=== PATIENT | male | born 1975 | race Hispanic/Latino ===

== ENCOUNTER 2018-05-03 22:50 | Inpatient (IN) | payer OTHER ==
--- NOTE | 2018-05-03 23:33 | ED PDOC ---
Arrival/HPI - General Chief Complaint: Altered Mental Status Time Seen by Provider: 05/03/18 22:58 Historian: Patient - History of Present Illness Narrative History of Present Illness (Text): 05/03/18 23:33 Tray Geronimo is a 43 year old male, who denies any significant past medical history, who presents to the ED brought in by EMS accompanied by status post possible seizure tonight. As per , patient was in their bedroom watching TV while she was in their dining room when she heard him scream. When she entered the room, she noted patient was clenched tightly at the arms, foaming at the mouth, and his eyes rolled back. Patient does not recall the incident. notes patient recently started taking antibiotics today prescribed to him by his transportation inspector a weak ago but is unsure why he was placed on antibiotics. Patient denies any history of tongue biting, acute bladder/bowel incontinence, headache, vision changes, weakness, vomiting, or any other complaints. PMD: Dr. Schaeffer Symptom Onset: Gradual Symptom Course: Unchanged Activities at Onset: Light Context: Home Past Medical History - Provider Review Nursing Documentation Reviewed: Yes - Neurological Hx Dizziness: Yes - Psychiatric Hx Substance Use: No Family/Social History - Physician Review Nursing Documentation Reviewed: Yes Family/Social History: Unknown Family HX Smoking Status: Light Smoker < 10 Cigarettes Daily Hx Alcohol Use: Yes Frequency of alcohol use: Socially Hx Substance Use: No Allergies/Home Meds Allergies/Adverse Reactions: Allergies No Known Allergies Allergy (Verified 05/03/18 22:59) Home Medications: Home Meds Medication Instructions Recorded Confirmed RX: No Known Home Med 05/03/18 05/03/18 Review of Systems - Physician Review All systems were reviewed & negative as marked: Yes - Review of Systems Constitutional: Normal Eyes: Normal ENT: Normal Respiratory: Normal. absent: SOB, Cough Cardiovascular: Normal. absent: Chest Pain Gastrointestinal: Normal. absent: Abdominal Pain, Diarrhea, Nausea, Vomiting Genitourinary Male: Normal. absent: Dysuria, Frequency, Hematuria, Urinary Output Changes Musculoskeletal: Normal. absent: Back Pain, Neck Pain Skin: Normal. absent: Rash Neurological: Normal. absent: Headache, Dizziness Endocrine: Normal Hemo/Lymphatic: Normal Psychiatric: Normal Physical Exam Vital Signs Reviewed: Yes Vital Signs Temp Pulse Resp BP Pulse Ox 05/04/18 12:00 98.4 F 88 16 121/83 97 05/04/18 10:00 74 05/04/18 09:36 16 05/04/18 08:00 99.5 F 90 16 150/100 H 97 05/04/18 06:00 90 135/80 05/04/18 05:00 85 18 140/100 H 05/04/18 04:00 98.5 F 86 24 130/95 H 05/04/18 02:25 81 18 155/74 H 98 05/04/18 02:00 88 138/80 05/04/18 01:00 85 140/74 05/03/18 23:21 98.1 F 90 18 164/113 H 100 Temperature: Afebrile Blood Pressure: Hypertensive Pulse: Regular Respiratory Rate: Normal Appearance: Positive for: Well-Appearing, Non-Toxic, Comfortable Pain Distress: None Mental Status: Positive for: Alert and Oriented X 3 - Systems Exam Head: Present: Atraumatic, Normocephalic Pupils: Present: PERRL Extroacular Muscles: Present: EOMI Conjunctiva: Present: Normal Mouth: Present: Moist Mucous Membranes Neck: Present: Normal Range of Motion Respiratory/Chest: Present: Clear to Auscultation, Good Air Exchange. No: Respiratory Distress, Accessory Muscle Use Cardiovascular: Present: Regular Rate and Rhythm, Normal S1, S2. No: Murmurs Abdomen: No: Tenderness, Distention, Peritoneal Signs Back: Present: Normal Inspection Upper Extremity: Present: Normal Inspection. No: Cyanosis, Edema Lower Extremity: Present: Normal Inspection. No: Edema Neurological: Present: GCS=15, CN II-XII Intact, Speech Normal Skin: Present: Warm, Dry, Normal Color. No: Rashes Psychiatric: Present: Alert, Oriented x 3, Normal Insight, Normal Concentration Medical Decision Making ED Course and Treatment: 05/03/18 23:33 Impression: 43 year old male presents status post possible seizure tonight. Plan: -- CT Head w/o contrast -- EKG -- CXR -- Labs, cardiac enzymes, alcohol level -- Urine drug screen -- Reassess and disposition Progress Notes: Reviewed EKG, NSR at [address] bpm[address] Non-specific ST/T wave changes. 05/04/18 01:22 Radiology reviewed, CXR reviewed, shows no acute processes. CT Head shows: 1. There is generalized parenchymal atrophy noted as demonstrated by symmetrical dilatation of ventricles and sulci. 2. Chronic periventricular and subcortical microvascular disease is seen. 3. No acute intracranial pathology. Electronically signed on May 04, 2018, 00:15:13 EDT by: Kiko Serrato M.D. 05/04/18 01:[address] Schaeffer, who is aware and agrees with plan. Accepts pt in to his service. Pt will go to Telemetry observation for new onset seizure and hypokalemia. Requests Dr. Navarrete on consult. - Lab Interpretations Lab Results: 05/03/18 23:32 05/03/18 23:32 Lab Results 05/03/18 23:32: WBC 9.5, RBC 3.42 L, Hgb 11.6 L, Hct 33.9 L, MCV 99.1, MCH 33.9, MCHC 34.2, RDW 14.5, Plt Count 209, MPV 10.2 05/03/18 23:32: Alcohol, Quantitative < 10 05/03/18 23:32: Sodium 131 L, Potassium 2.8 L*, Chloride 85 L, Carbon Dioxide 2 5, Anion Gap 24 H, BUN 11, Creatinine 0.7 L, Est GFR ( Amer) > 60, Est GFR (Non-Af Amer) > 60, Random Glucose 92, Calcium 8.4, Total Bilirubin 1.6 H, AST 141 H, ALT 64 H, Alkaline Phosphatase 140 H, Lactate Dehydrogenase 608, Total Creatine Kinase 92, Troponin I < 0.01, Total Protein 7.5, Albumin 4.2, Globulin 3.3, Albumin/Globulin Ratio 1.3 05/03/18 23:32: PT 12.8 H, INR 1.12, APTT 28.7 I have reviewed the lab results: Yes - RAD Interpretation Radiology Orders: 05/03/18 23:34 HEAD W/O CONTRAST [CT] Stat 05/03/18 23:35 CHEST ONE VIEW [RAD] Stat Furniture Sales Associate: ED Physician, Radiologist - EKG Interpretation Interpreted by ED Physician: Yes Type: 12 lead EKG - Medication Orders Current Medication Orders: Famotidine (Pepcid) 40 mg PO HS SANDEEP Potassium Chloride 20 meq/ (Sodium Chloride) 1,010 mls @ 100 mls/hr IV .Q10H6M SANDEEP Last Admin: 05/04/18 08:20 Dose: 100 mls/hr eMAR Start Stop Document 05/04/18 08:20 ALIPM (Rec: 05/04/18 13:44 ALIPM [id number]) Intravenous Solution Start Date 05/04/18 Start Time 08:20 End Date 05/04/18 End time 18:20 Total Infusion Time 600 Discontinued Medications Potassium Chloride (Potassium Chloride 20 Meq/100 Ml) 100 mls @ 50 mls/hr IV ONCE ONE Stop: 05/04/18 02:39 Last Admin: 05/04/18 01:14 Dose: 50 mls/hr eMAR Start Stop Document 05/04/18 01:14 RD (Rec: 05/04/18 01:14 RD [id number]) Intravenous Solution Start Date 05/04/18 Start Time 01:14 End Date 05/04/18 End time 03:14 Total Infusion Time 120 Sodium Chloride (Sodium Chloride 0.9%) 1,000 mls @ 100 mls/hr IV .Q10H SANDEEP Last Admin: 05/04/18 06:15 Dose: 100 mls/hr eMAR Start Stop Document 05/04/18 06:15 B.P (Rec: 05/04/18 06:16 B.P [id number]) Intravenous Solution Start Date DANIELE.STARTSTOP 4 17 Message Total Infusion Time Main 3 Magnesium Sulfate (Magnesium Sulfate 2 Gm/50 Ml Water) 2 gm in 50 mls @ 25 mls/hr IVPB ONCE ONE Stop: 05/04/18 10:18 Last Admin: 05/04/18 08:43 Dose: 25 mls/hr eMAR Start Stop Document 05/04/18 08:43 ALIPM (Rec: 05/04/18 08:44 ALIPM [id number]) Intravenous Solution Start Date 05/04/18 Start Time 08:43 End Date 05/04/18 End time 10:43 Total Infusion Time 120 Potassium Chloride (K-Dur 20 Meq Er Tab) 20 meq PO STAT STA Stop: 05/04/18 00:41 Last Admin: 05/04/18 01:07 Dose: 20 meq Potassium Chloride (K-Dur 20 Meq Er Tab) 40 meq PO ONCE ONE Stop: 05/04/18 05:55 Last Admin: 05/04/18 06:15 Dose: 40 meq - Scribe Statement The provider has reviewed the documentation as recorded by the Scribe Bhargavi Kiley All medical record entries made by the Flacoibmeagan were at my direction and p ersonally dictated by me. I have reviewed the chart and agree that the record accurately reflects my personal performance of the history, physical exam, medical decision making, and the department course for this patient. I have also personally directed, reviewed, and agree with the discharge instructions and disposition. Disposition/Present on Arrival - Present on Arrival Any Indicators Present on Arrival: No History of DVT/PE: No History of Uncontrolled Diabetes: No Urinary Catheter: No History of Decub. Ulcer: No History Surgical Site Infection Following: None - Disposition Have Diagnosis and Disposition been Completed?: Yes Diagnosis: Hypokalemia, New onset seizure Disposition Time: 02:00 Condition: GOOD
[2018-05-04 00:09] LABS: HEMOGLOBIN 11.6 g/dL (14.0-18.0); MEAN CELL VOLUME 99.1 fl (80.0-105.0); MEAN CORPUSCULAR HEMOGLOBIN 33.9 pg (25.0-35.0); MEAN CORPUSCULAR HGB CONC 34.2 g/dl (31.0-37.0); MEAN PLATELET VOLUME 10.2 fl (7.0-11.0); RBC 3.42 10^6/uL (3.5-6.1); RED CELL DISTRIBUTION WIDTH 14.5 % (11.5-14.5); WHITE BLOOD COUNT 9.5 10^3/ul (4.5-11.0)
[2018-05-04 00:13] LABS: INR 1.12; PARTIAL THROMBOPLASTIN TIME 28.7 Seconds (25.1-36.5); PROTHROMBIN TIME 12.8 SECONDS (9.4-12.5)
[2018-05-04 00:28] LABS: TROPONIN I < 0.01 ng/mL
[2018-05-04 00:37] LABS: ALB/GLOB RATIO 1.3 (1.1-1.8); ALBUMIN 4.2 g/dL (3.0-4.8); ALT/SGPT 64 U/L (7-56); AST/SGOT 141 U/L (17-59); BLOOD UREA NITROGEN 11 mg/dL (7-21); CALCIUM 8.4 mg/dL (8.4-10.5); GFR NON-AFRICAN AMERICAN > 60
[2018-05-04] MEDS ORDERED: Potassium Chloride 20 mEq ER Tab PO STA (00:40)
[2018-05-04] MEDS ORDERED: Potassium Chloride 20 mEq 100 ML IV ONE (00:40)
[2018-05-04] MEDS ORDERED: Sodium Chloride 0.9% 1,000 ML IV SCH (03:00)
[2018-05-04] MEDS ORDERED: Potassium Chloride 20 mEq ER Tab PO ONE ×2 (05:54→18:37)
--- NOTE | 2018-05-04 06:32 | CP.PCM.HP ---
<Fabi Villanueva - Last Filed: 05/04/18 11:03> History of Present Illness - History of Present Illness History of Present Illness: H&P for Dario Fletcher PGY3 This is a 43yo male with no significant history who came to ED for seizure like activity. Patient reports he was watching tv in bed when all of a sudden his heard him scream and found him with his eyes rolled back and foaming at the mouth. He does not remember passing out or hitting his head. He did not feel dizzy, vision changes, chest pain or have any other issues at the time and was just relaxing in bed. His states he was not shaking but his arms were locked at his chest and he was unresponsive for a few minutes until EMS arrived. When EMS arrived patient was confused for several minutes before he realized what had happened. Patient did have one episode of diarrhea in the bed as per , but was not having any diarrhea prior to the episode and has pain on his tongue, but does not remember biting it. This has never happened before. Patient does have history of psoriasis and started taking oral antibiotics starting that day but does not remember that name. Otherwise, he denies chest pain, shortness of breath, dizziness, vision changes, nausea/vomiting/diarrhea, fever/chills, dysuria or hematuria. Past medical history: Psoriasis Past surgical history: Denies Home meds: None Allergies: NKDA Social history: smokes 1/2-3/4 ppd x 25yrs, drinks 1-2 beers daily, denies drug use. Lives with spouse Family history: Both parents alive and healthy Present on Admission - Present on Admission Any Indicators Present on Admission: No Review of Systems - Review of Systems All systems: reviewed and no additional remarkable complaints except Review of Systems: 12 point ROS reviewed as per HPI and is otherwise negative Past Patient History - Past Social History Smoking Status: Light Smoker < 10 Cigarettes Daily - NEUROLOGICAL Hx Dizziness: Yes - PSYCHIATRIC Hx Substance Use: No Meds Allergies/Adverse Reactions: Allergies Allergy/AdvReac Type Severity Reaction Status Date / Time No Known Allergies Allergy Verified 05/03/18 22:59 Physical Exam - Constitutional Appears: No Acute Distress - Head Exam Head Exam: ATRAUMATIC, NORMAL INSPECTION, NORMOCEPHALIC - Eye Exam Eye Exam: Normal appearance, PERRL Pupil Exam: NORMAL ACCOMODATION - ENT Exam ENT Exam: Mucous Membranes Moist - Neck Exam Neck exam: Positive for: Normal Inspection - Respiratory Exam Respiratory Exam: Clear to Auscultation Bilateral, NORMAL BREATHING PATTERN. absent: Rales, Rhonchi, Wheezes - Cardiovascular Exam Cardiovascular Exam: REGULAR RHYTHM, +S1, +S2. absent: Gallop, Rubs, Systolic Murmur - GI/Abdominal Exam GI & Abdominal Exam: Normal Bowel Sounds, Soft. absent: Mass, Rebound, Rigid, Tenderness - Extremities Exam Extremities exam: Positive for: normal inspection. Negative for: calf tenderness, pedal edema - Neurological Exam Neurological exam: Alert, CN II-XII Intact, Oriented x3 - Psychiatric Exam Psychiatric exam: Normal Affect, Normal Mood - Skin Skin Exam: Dry, Intact, Rash (on bilateral dorsal surface of hands ), Warm Results - Vital Signs Recent Vital Signs: Last Vital Signs Temp 98.1 F 05/03/18 23:21 Pulse 81 05/04/18 02:25 Resp 18 05/04/18 02:25 BP 155/74 H 05/04/18 02:25 Pulse Ox 98 05/04/18 02:25 - Labs Result Diagrams: 05/03/18 23:32 05/04/18 07:30 Labs: Laboratory Results - last 24 hr 05/03/18 05/03/18 05/03/18 23:32 23:32 23:32 WBC RBC Hgb Hct MCV MCH MCHC RDW Plt Count MPV PT 12.8 H INR 1.12 APTT 28.7 Sodium 131 L Potassium 2.8 L* Chloride 85 L Carbon Dioxide 25 Anion Gap 24 H BUN 11 Creatinine 0.7 L Est GFR ( Amer) > 60 Est GFR (Non-Af Amer) > 60 Random Glucose 92 Calcium 8.4 Total Bilirubin 1.6 H AST 141 H ALT 64 H Alkaline Phosphatase 140 H Lactate Dehydrogenase 608 Total Creatine Kinase 92 Troponin I < 0.01 Total Protein 7.5 Albumin 4.2 Globulin 3.3 Albumin/Globulin Ratio 1.3 Alcohol, Quantitative < 10 05/03/18 23:32 WBC 9.5 RBC 3.42 L Hgb 11.6 L Hct 33.9 L MCV 99.1 MCH 33.9 MCHC 34.2 RDW 14.5 Plt Count 209 MPV 10.2 PT INR APTT Sodium Potassium Chloride Carbon Dioxide Anion Gap BUN Creatinine Est GFR ( Amer) Est GFR (Non-Af Amer) Random Glucose Calcium Total Bilirubin AST ALT Alkaline Phosphatase Lactate Dehydrogenase Total Creatine Kinase Troponin I Total Protein Albumin Globulin Albumin/Globulin Ratio Alcohol, Quantitative Assessment & Plan - Assessment and Plan (Free Text) Assessment: This is a 43yo male with past medical history of psoriasis admitted for 1. New onset seizure - Can be secondary to metabolic derangement. Rule out other etiology 2. Hypokalemia - possibly secondary to diarrhea 3. Hypomagnesia 4. Psoriasis Plan: Head CT and EKG reviewed. Neurology consulted. Will continue to monitor electrolytes and replace as needed. Will continue IV fluids with additives. UDS is negative. Seizure precautions. Will continue GI and DVT prophylaxis. Case seen, discussed and reviewed with Dr. Schaeffer. - Date & Time Date: 05/04/18 Time: 08:02 <Lc Schaeffer S - Last Filed: 05/04/18 19:26> Results - Vital Signs Recent Vital Signs: Last Vital Signs Temp 98.4 F 05/04/18 12:00 Pulse 114 H 05/04/18 18:00 Resp 16 05/04/18 12:00 BP 121/83 05/04/18 12:00 Pulse Ox 97 05/04/18 12:00 - Labs Result Diagrams: 05/03/18 23:32 05/04/18 16:33 Labs: Laboratory Results - last 24 hr 05/03/18 05/03/18 05/03/18 23:32 23:32 23:32 WBC RBC Hgb Hct MCV MCH MCHC RDW Plt Count MPV PT 12.8 H INR 1.12 APTT 28.7 Sodium 131 L Potassium 2.8 L* Chloride 85 L Carbon Dioxide 25 Anion Gap 24 H BUN 11 Creatinine 0.7 L Est GFR ( Amer) > 60 Est GFR (Non-Af Amer) > 60 Random Glucose 92 Calcium 8.4 Magnesium Total Bilirubin 1.6 H AST 141 H ALT 64 H Alkaline Phosphatase 140 H Lactate Dehydrogenase 608 Total Creatine Kinase 92 Troponin I < 0.01 Total Protein 7.5 Albumin 4.2 Globulin 3.3 Albumin/Globulin Ratio 1.3 Urine Opiates Screen Urine Methadone Screen Ur Barbiturates Screen Ur Phencyclidine Scrn Ur Amphetamines Screen U Benzodiazepines Scrn U Oth Cocaine Metabols U Cannabinoids Screen Alcohol, Quantitative < 10 05/03/18 05/04/18 05/04/18 23:32 06:00 07:30 WBC 9.5 RBC 3.42 L Hgb 11.6 L Hct 33.9 L MCV 99.1 MCH 33.9 MCHC 34.2 RDW 14.5 Plt Count 209 MPV 10.2 PT INR APTT Sodium 133 Potassium 3.0 L Chloride 90 L Carbon Dioxide 29 Anion Gap 17 BUN 7 Creatinine 0.6 L Est GFR ( Amer) > 60 Est GFR (Non-Af Amer) > 60 Random Glucose 70 Calcium 8.0 L Magnesium 1.0 L* Total Bilirubin 1.3 AST 106 H D ALT 53 Alkaline Phosphatase 114 Lactate Dehydrogenase Total Creatine Kinase Troponin I Total Protein 6.6 Albumin 3.5 Globulin 3.1 Albumin/Globulin Ratio 1.1 Urine Opiates Screen Negative Urine Methadone Screen Negative Ur Barbiturates Screen Negative Ur Phencyclidine Scrn Negative Ur Amphetamines Screen Negative U Benzodiazepines Scrn Negative U Oth Cocaine Metabols Negative U Cannabinoids Screen Negative Alcohol, Quantitative 05/04/18 16:33 WBC RBC Hgb Hct MCV MCH MCHC RDW Plt Count MPV PT INR APTT Sodium 132 Potassium 3.3 L Chloride 92 L Carbon Dioxide 30 Anion Gap 13 BUN 4 L Creatinine 0.6 L Est GFR ( Amer) > 60 Est GFR (Non-Af Amer) > 60 Random Glucose 115 H Calcium 8.1 L Magnesium 1.6 L Total Bilirubin AST ALT Alkaline Phosphatase Lactate Dehydrogenase Total Creatine Kinase Troponin I Total Protein Albumin Globulin Albumin/Globulin Ratio Urine Opiates Screen Urine Methadone Screen Ur Barbiturates Screen Ur Phencyclidine Scrn Ur Amphetamines Screen U Benzodiazepines Scrn U Oth Cocaine Metabols U Cannabinoids Screen Alcohol, Quantitative Assessment & Plan - Assessment and Plan (Free Text) Assessment: Pt seen and examined. I have reviewed the note of the center medical and lab director and agree with it. I have discussed the assessment and plan with the resident. I have reviewed the patient's labs and medications. Pt with new onset Sz. Urine tox negative. Low Mg and Low K. Will replace electrolytes. Will get Neuro evalua tion. Spoke to at bedside. Will get MRI.
[2018-05-04 07:15] LABS: BARBITURATES, UR NEGATIVE (NEGATIVE); BENZODIAZEPINES, UR NEGATIVE (NEGATIVE); OPIATES, UR NEGATIVE (NEGATIVE); PHENCYCLIDINE, UR NEGATIVE (NEGATIVE)
[2018-05-04 08:07] LABS: ALB/GLOB RATIO 1.1 (1.1-1.8); ALBUMIN 3.5 g/dL (3.0-4.8); ALT/SGPT 53 U/L (7-56); AST/SGOT 106 U/L (17-59); BLOOD UREA NITROGEN 7 mg/dL (7-21); GFR NON-AFRICAN AMERICAN > 60
[2018-05-04] MEDS ORDERED: Magnesium Sulfate 2 gm/50 ml 2 GM/50 ML BAG IVPB ONE (08:19)
--- NOTE | 2018-05-04 08:24 | CT ---
Date of service: 05/04/2018 PROCEDURE: CT HEAD WITHOUT CONTRAST. HISTORY: seizure COMPARISON: None available TECHNIQUE: Axial computed tomography images were obtained through the head/brain without intravenous contrast. Radiation dose: Total exam DLP = 833.43 mGy-cm. This CT exam was performed using one or more of the following dose reduction techniques: Automated exposure control, adjustment of the mA and/or kV according to patient size, and/or use of iterative reconstruction technique. FINDINGS: Mild streak artifact limits evaluation of the skullbase. HEMORRHAGE: No intracranial hemorrhage. BRAIN: Diffuse atrophy with prominence of the ventricles and sulci noted. No mass effect or edema. Scattered periventricular and subcortical white matter hypodensities, which are nonspecific, but often seen with chronic microvascular ischemic disease. Please note that MRI with diffusion imaging is more sensitive in the detection of acute ischemic event. VENTRICLES: No hydrocephalus. CALVARIUM: Unremarkable. PARANASAL SINUSES: Unremarkable as visualized. No significant inflammatory changes. MASTOID AIR CELLS: Unremarkable as visualized. No inflammatory changes. OTHER FINDINGS: Extensive opacification of bilateral external auditory canals, likely cerumen. IMPRESSION: Generalized atrophy. Nonspecific white matter changes. Preliminary impression was provided by [email or web address].
--- NOTE | 2018-05-04 09:14 | RAD ---
HISTORY: seizure COMPARISON: None available. TECHNIQUE: Chest, one view. FINDINGS: LUNGS: No focal consolidation. Please note that chest x-ray has limited sensitivity for the detection of pulmonary masses. PLEURA: No significant pleural effusion identified. No definite pneumothorax . CARDIOVASCULAR: The cardiomediastinal silhouette appears within normal limits of size. OSSEOUS STRUCTURES: Degenerative changes. VISUALIZED UPPER ABDOMEN: Unremarkable. OTHER FINDINGS: None. IMPRESSION: No focal consolidation, significant pleural effusion, or definite pneumothorax identified.
--- NOTE | 2018-05-04 09:55 | CARD ---
APPROVED REPORT Date of service: 05/03/2018 EKG Measurement Heart [id number] <Conclusion> Normal sinus rhythm RVCD NSSTW changes
[2018-05-04] MEDS ORDERED: Gadodiamide 287 MG/ML VIAL (15ML) IV ONE (14:10)
--- NOTE | 2018-05-04 15:25 | MRI ---
Date of service: 05/04/2018 PROCEDURE: MRI BRAIN WITH AND WITHOUT CONTRAST HISTORY: New onset seizures COMPARISON: Noncontrast head CT from 05/04/2018 TECHNIQUE: Multiplanar, multisequence MR images of the brain were obtained with and without intravenous contrast enhancement. 15 mL Omniscan was injected intravenously. FINDINGS: HEMORRHAGE: None DWI: No evidence of an acute or early subacute infarction. BRAIN PARENCHYMA: Mesa-white matter differentiation is preserved. There is no mass, mass effect or abnormal extra-axial fluid collection. There is no territorial infarction. The midline sagittal structures are normal. ENHANCEMENT: No abnormal intracranial enhancement. VENTRICLES: There is moderate age advanced global cerebral and cerebellar volume loss and proportionate enlargement of the ventricles, cerebellar folia and cortical sulci. CRANIUM: There is normal bone marrow signal pattern. ORBITS: Grossly unremarkable. PARANASAL SINUSES/MASTOIDS: Predominantly clear. VASCULAR SYSTEM: There are normal signal voids in the larger intracranial arteries. OTHER FINDINGS: None . IMPRESSION: No acute intracranial abnormality. Moderate age advanced global cerebral and cerebellar volume loss.
[2018-05-04 17:00] LABS: BLOOD UREA NITROGEN 4 mg/dL (7-21); CALCIUM 8.1 mg/dL (8.4-10.5); GFR NON-AFRICAN AMERICAN > 60
[2018-05-04] MEDS ORDERED: Multivitamin (MVI) 10 ML, Thiamine 100 MG, Folic Acid 1 MG, Potassium Chloride 20 MEQ i... IV ONE (17:08)
--- NOTE | 2018-05-04 18:59 | CON ---
Copied To: Ash Navarrete MD Attending MD: Ash Navarrete MD DATE: 05/04/2018 NEUROLOGY CONSULTATION CHIEF COMPLAINT: New-onset seizure. HISTORY OF PRESENT ILLNESS: This is a 43-year-old man with history of psoriasis, history of chronic EtOH use, who presented to the hospital for breakthrough seizure where his found him with foaming at the mouth. He does not remember passing out. He said he did feel lightheaded prior to the event. He said he drinks 5 to 6 beers daily and had been drinking for a long time and had stopped for a few days due to taking oral antibiotics for his underlying psoriasis. His MRI of the brain showed no acute intracranial abnormalities, just moderate age-advanced global cerebral and cerebellar volume loss, likely from chronic alcohol use. Currently, no further seizure in the hospital. He is getting IV fluids. He had electrolyte derangements, which are being corrected in terms of hypokalemia and hyponatremia, and low BUN and creatinine. No focal weakness. He is tremulous on examination, seems likely more of alcohol withdrawal. PAST MEDICAL HISTORY: Psoriasis. PAST SURGICAL HISTORY: He denies. HOME MEDICATIONS: Reviewed by nurse per reconciliation sheet. ALLERGIES: NO KNOWN DRUG ALLERGIES. SOCIAL HISTORY: He smokes one-half a pack per day for past 25 years. Drinks about 5 to 6 beers daily for many years. Lives with his spouse. FAMILY HISTORY: Noncontributory. REVIEW OF SYSTEMS: Fourteen-point review of systems is negative except as per the HPI. LABORATORY DATA: Sodium is 132, potassium 3.3, chloride of 92, carbon dioxide 30, BUN of 4, creatinine 0.6. Random glucose of 115. PHYSICAL EXAMINATION: VITAL SIGNS: Temperature of 98.4, pulse rate of 88, blood pressure 121/83, respiratory rate of 16, oxygen saturation 97% by room air. GENERAL: The patient is sitting up in bed, in no acute distress, mildly tremulous. HEENT: Head is atraumatic, normocephalic. PERRLA. Extraocular muscles intact. NECK: Supple. No JVD, no adenopathy noted. LUNGS: Clear to auscultation. No adventitious sounds. HEART: S1, S2. Normal rate and rhythm. No murmurs, rubs, or gallops. ABDOMEN: Soft, nontender, and nondistended. Bowel sounds are present. EXTREMITIES: No clubbing. No cyanosis. Peripheral pulses are 2+ felt bilaterally. NEUROLOGIC: The patient is alert and oriented to person, place, month, and year. Speech is fluent without any errors. Poor attention span. Slow thought process. Recall after 5 minutes is 1/3. Cranial nerves II through XII intact. Motor: Cachectic looking. Moves all extremities equally. No pronator drift seen. Sensory: Decreased light touch and pinprick up to the calves bilaterally. Decreased vibration of the toes. DTRs are 2+ throughout and 1 at both ankles. Coordination: [id number] intact. No dysmetria noted. Has tremors in both hands with hands are outstretched, likely from EtOH withdrawal. Gait is deferred for now. IMPRESSION: New-onset seizures, likely secondary to alcohol withdrawal seizures given that the patient is a chronic daily drinker and does binge drinking and has stopped due to taking oral antibiotics for his underlying psoriasis. MRI of the brain showed advanced global volume loss especially in the cerebral and cerebellar area, but no acute intracranial abnormality. All consistent with chronic ethanol use. At this time; 1. We will hold off any antiepileptics. 2. CIWA protocol, thiamine 100 mg p.o. daily and B12 of 1000 mcg daily. 3. IV fluids. 4. Ativan 2 mg IV every 6 hours for any acute onset of seizure. 5. Okay to follow up as an outpatient. Again, monitor electrolytes and correct accordingly. Thank you for this consult. Ash Navarrete MD
[2018-05-04] MEDS ORDERED: Magnesium Oxide 400 mg Tab UD PO ONE (19:50)
[2018-05-05 06:54] LABS: ALB/GLOB RATIO 1.1 (1.1-1.8); ALBUMIN 3.4 g/dL (3.0-4.8); ALT/SGPT 51 U/L (7-56); AST/SGOT 101 U/L (17-59); BLOOD UREA NITROGEN 3 mg/dL (7-21); CALCIUM 8.5 mg/dL (8.4-10.5); GFR NON-AFRICAN AMERICAN > 60
[2018-05-05] MEDS ORDERED: Potassium Phosphate 15 MMOLE in Dextrose 5% In Water 250 ML IVPB ONE (07:44)
--- NOTE | 2018-05-05 08:28 | CP.PCM.PN ---
<Fabi Villanueva - Last Filed: 05/05/18 11:54> Subjective - Date & Time of Evaluation Date of Evaluation: 05/05/18 Time of Evaluation: 07:00 - Subjective Subjective: Medicine Progress Note for Dario Fletcher PGY3 Patient seen and examined at bedside. As per nursing staff, patient had some agitation overnight that was relieved by Librium. Patient is still very vague on how much he actually drinks per day but reports that he would like to quit. He is tremulous this am, but denies chest pain, shortness of breath, nausea/vomiting/diarrhea, fever/chills, dysuria or hematuria. Objective - Vital Signs/Intake and Output Vital Signs (last 24 hours): Temp Pulse Resp BP Pulse Ox 98.2 F 92 H 18 124/86 99 05/05/18 06:00 05/05/18 06:00 05/05/18 06:00 05/05/18 06:00 05/05/18 06:00 Intake and Output: 05/05/18 05/05/18 06:59 18:59 Intake Total 2140 Output Total 1700 Balance 440 - Medications Medications: Current Medications Chlordiazepoxide (Librium) 50 mg PO HS [facility]; Protocol Last Admin: 05/04/18 22:34 Dose: 50 mg Cyanocobalamin (Vitamin B12 1000 Mcg Tab) 1,000 mcg PO DAILY [facility] Last Admin: 05/04/18 17:48 Dose: 1,000 mcg Famotidine (Pepcid) 40 mg PO HS [facility] Last Admin: 05/04/18 21:04 Dose: 40 mg Potassium Chloride 20 meq/ (Sodium Chloride) 1,010 mls @ 100 mls/hr IV .Q10H6M [facility] Last Admin: 05/05/18 05:16 Dose: 100 mls/hr Potassium Phosphate 15 mmole/ (Dextrose) 255 mls @ 42.5 mls/hr IVPB ONCE ONE Stop: 05/05/18 13:43 Lorazepam (Ativan) 2 mg IVP Q6H PRN; Protocol PRN Reason: Symptoms of alcohol withdrawl Last Admin: 05/05/18 02:53 Dose: 2 mg Magnesium Oxide (Mag-Ox) 400 mg PO TID [facility] - Labs Labs: 05/03/18 23:32 05/05/18 06:00 PT 12.8 SECONDS (9.4-12.5) H 05/03/18 23:32 INR 1.12 05/03/18 23:32 APTT 28.7 Seconds (25.1-36.5) 05/03/18 23:32 - Constitutional Appears: No Acute Distress - Head Exam Head Exam: ATRAUMATIC, NORMAL INSPECTION, NORMOCEPHALIC - Eye Exam Eye Exam: Normal appearance, PERRL Pupil Exam: NORMAL ACCOMODATION, PERRL - ENT Exam ENT Exam: Mucous Membranes Moist - Respiratory Exam Respiratory Exam: Clear to Ausculation Bilateral, NORMAL BREATHING PATTERN. absent: Rales, Rhonchi, Wheezes - Cardiovascular Exam Cardiovascular Exam: REGULAR RHYTHM, +S1, +S2. absent: Gallop, Rubs, Murmur - GI/Abdominal Exam GI & Abdominal Exam: Soft, Normal Bowel Sounds. absent: Rigid, Tenderness, Mass, Rebound - Extremities Exam Extremities Exam: Normal Inspection. absent: Calf Tenderness, Pedal Edema - Neurological Exam Neurological Exam: Alert, Awake, CN II-XII Intact, Oriented x3 Additional comments: tremulous - Psychiatric Exam Psychiatric exam: Normal Affect, Normal Mood - Skin Skin Exam: Dry, Warm Assessment and Plan - Assessment and Plan (Free Text) Assessment: This is a 43yo male with past medical history of psoriasis admitted for 1. New onset seizure - Can be secondary to alcohol withdrawal 2. Alcohol withdrawal 3. Hypokalemia - possibly secondary to diarrhea 4. Hypomagnesia 5. Psoriasis Plan: CIWA between 7-11. Continue Ativan prn, Librum, thamine and B12. Patient is on IV fluids with K. Electrolytes are being monitored and replaced as needed. Labs and imaging reviewed. MRI showed global atrophy. Neurology recs appreciated. Patient counseled on alcohol cessation. He is on GI and DVT prophylaxis. Case seen, discussed and reviewed with Dr. Schaeffer. Dario Villanueva PGY3 <Lc Schaeffer - Last Filed: 05/05/18 19:19> Objective - Vital Signs/Intake and Output Vital Signs (last 24 hours): Temp Pulse Resp BP Pulse Ox 99.2 F 87 20 149/109 H 99 05/05/18 18:00 05/05/18 18:00 05/05/18 18:00 05/05/18 18:00 05/05/18 06:00 - Medications Medications: Current Medications Chlordiazepoxide (Librium) 50 mg PO BID [facility]; Protocol Last Admin: 05/05/18 17:10 Dose: Not Given Cyanocobalamin (Vitamin B12 1000 Mcg Tab) 1,000 mcg PO DAILY [facility] Last Admin: 05/05/18 10:03 Dose: 1,000 mcg Famotidine (Pepcid) 40 mg PO HS [facility] Last Admin: 05/04/18 21:04 Dose: 40 mg Potassium Chloride 20 meq/ (Sodium Chloride) 1,010 mls @ 100 mls/hr IV .Q10H6M [facility] Last Admin: 05/05/18 05:16 Dose: 100 mls/hr Lorazepam (Ativan) 2 mg IVP Q6H PRN; Protocol PRN Reason: Symptoms of alcohol withdrawl Last Admin: 05/05/18 13:19 Dose: 2 mg Magnesium Oxide (Mag-Ox) 400 mg PO TID [facility] Last Admin: 05/05/18 17:15 Dose: 400 mg - Labs Labs: 05/03/18 23:32 05/05/18 06:00 PT 12.8 SECONDS (9.4-12.5) H 05/03/18 23:32 INR 1.12 05/03/18 23:32 APTT 28.7 Seconds (25.1-36.5) 05/03/18 23:32 Assessment and Plan - Assessment and Plan (Free Text) Plan: Pt seen and examined. I have reviewed the note of the medical photographer and agree with it. I have discussed the assessment and plan with the resident. I have reviewed the patient's labs and medications. Pt with ETOH hx and has chronic changes of his brain based on MRI. He is on Ativan and Librium. Spoke to . Will get psych to evaluate.
[2018-05-05] MEDS: Magnesium Oxide 400 mg Tab UD PO SCH ×3 (10:03→17:15)
[2018-05-05] MEDS ORDERED: Magnesium Oxide 400 mg Tab UD PO ONE (19:06)
[2018-05-06 08:08] LABS: BLOOD UREA NITROGEN 3 mg/dL (7-21); CALCIUM 8.6 mg/dL (8.4-10.5); GFR NON-AFRICAN AMERICAN > 60
[2018-05-06] MEDS: Magnesium Oxide 400 mg Tab UD PO SCH ×3 (10:19→17:51)
--- NOTE | 2018-05-06 10:29 | CP.PCM.PN ---
<Fabi Villanueva - Last Filed: 05/06/18 14:56> Subjective - Date & Time of Evaluation Date of Evaluation: 05/06/18 Time of Evaluation: 07:00 - Subjective Subjective: Medicine Progress note for Dario Fletcher PGY3 Patient seen and examined at bedside. Overnight there were no acute events as per nursing staff. Patient is resting in bed this AM. He denies chest pain, shortness of breath, nausea/vomiting/diarrhea, fever/chills, visual or auditory hallucinations. Objective - Vital Signs/Intake and Output Vital Signs (last 24 hours): Temp Pulse Resp BP Pulse Ox 99 F 104 H 20 140/90 99 05/06/18 00:01 05/06/18 00:01 05/06/18 00:01 05/06/18 00:01 05/06/18 00:01 Intake and Output: 05/06/18 05/06/18 06:59 18:59 Intake Total 1200 Balance 1200 - Medications Medications: Current Medications Chlordiazepoxide (Librium) 50 mg PO BID [facility]; Protocol Last Admin: 05/05/18 20:05 Dose: 50 mg Cyanocobalamin (Vitamin B12 1000 Mcg Tab) 1,000 mcg PO DAILY [facility] Last Admin: 05/06/18 10:19 Dose: 1,000 mcg Famotidine (Pepcid) 40 mg PO HS [facility] Last Admin: 05/05/18 23:26 Dose: 40 mg Potassium Chloride 20 meq/ (Sodium Chloride) 1,010 mls @ 100 mls/hr IV .Q10H6M [facility] Last Admin: 05/06/18 02:49 Dose: 100 mls/hr Lorazepam (Ativan) 2 mg IVP Q6H PRN; Protocol PRN Reason: Symptoms of alcohol withdrawl Last Admin: 05/06/18 02:47 Dose: 2 mg Magnesium Oxide (Mag-Ox) 400 mg PO TID [facility] Last Admin: 05/06/18 10:19 Dose: 400 mg - Labs Labs: 05/03/18 23:32 05/06/18 07:00 PT 12.8 SECONDS (9.4-12.5) H 05/03/18 23:32 INR 1.12 05/03/18 23:32 APTT 28.7 Seconds (25.1-36.5) 05/03/18 23:32 - Constitutional Appears: No Acute Distress - Head Exam Head Exam: ATRAUMATIC, NORMAL INSPECTION, NORMOCEPHALIC - Eye Exam Eye Exam: Normal appearance, PERRL Pupil Exam: NORMAL ACCOMODATION - ENT Exam ENT Exam: Mucous Membranes Moist - Respiratory Exam Respiratory Exam: Clear to Ausculation Bilateral, NORMAL BREATHING PATTERN. absent: Rales, Rhonchi, Wheezes - Cardiovascular Exam Cardiovascular Exam: REGULAR RHYTHM, +S1, +S2. absent: Gallop, Rubs, Murmur - GI/Abdominal Exam GI & Abdominal Exam: Soft, Normal Bowel Sounds. absent: Rigid, Tenderness, Mass, Rebound - Extremities Exam Extremities Exam: Normal Inspection. absent: Calf Tenderness, Pedal Edema Additional comments: tremulous - Neurological Exam Neurological Exam: Alert, Awake, CN II-XII Intact, Oriented x3 - Psychiatric Exam Psychiatric exam: Normal Affect, Normal Mood - Skin Skin Exam: Dry, Warm Assessment and Plan - Assessment and Plan (Free Text) Assessment: This is a 43yo male with past medical history of psoriasis admitted for 1. New onset seizure - Can be secondary to alcohol withdrawal 2. Alcohol withdrawal 3. Hypokalemia - resolved 4. Hypomagnesia 5. Psoriasis Plan: Continue multivitamin, folic acid, and thiamine. Magox for hypomagnesia. Psych c onsulted. Continue to monitor CIWA and Librium TID. Spoke with who is aware of plan. Patient will be given information about alcohol cessation and rehab facilities as per social work. Case seen, discussed and reviewed with Dr. Schaeffer. Dario Villanueva PGY3 <Lc Schaeffer - Last Filed: 05/06/18 19:30> Objective - Vital Signs/Intake and Output Vital Signs (last 24 hours): Temp Pulse Resp BP Pulse Ox 98.7 F 102 H 16 110/78 100 05/06/18 14:05/06/18 14:09 05/06/18 14:05/06/18 14:05/06/18 14:09 - Medications Medications: Current Medications Chlordiazepoxide (Librium) 50 mg PO TID [facility]; Protocol Last Admin: 05/06/18 17:52 Dose: 50 mg Cyanocobalamin (Vitamin B12 1000 Mcg Tab) 1,000 mcg PO DAILY [facility] Last Admin: 05/06/18 10:19 Dose: 1,000 mcg Famotidine (Pepcid) 40 mg PO HS [facility] Last Admin: 05/05/18 23:26 Dose: 40 mg Folic Acid (Folic Acid) 1 mg PO DAILY [facility] Last Admin: 05/06/18 12:48 Dose: 1 mg Lorazepam (Ativan) 2 mg IVP Q6H PRN; Protocol PRN Reason: Symptoms of alcohol withdrawl Last Admin: 05/06/18 12:43 Dose: 2 mg Magnesium Oxide (Mag-Ox) 400 mg PO TID [facility] Last Admin: 05/06/18 17:51 Dose: 400 mg Multivitamins/Minerals (Therapeutic-M Tab) 1 tab PO 0800 [facility] Last Admin: 05/06/18 17:52 Dose: 1 tab Thiamine HCl (Vitamin B1 Tab) 100 mg PO DAILY [facility] Last Admin: 05/06/18 17:52 Dose: 100 mg - Labs Labs: 05/03/18 23:32 05/06/18 07:00 PT 12.8 SECONDS (9.4-12.5) H 05/03/18 23:32 INR 1.12 05/03/18 23:32 APTT 28.7 Seconds (25.1-36.5) 05/03/18 23:32 Assessment and Plan - Assessment and Plan (Free Text) Plan: Pt seen and examined. I have reviewed the note of the bilingual medical assistant and agree with it. I have discussed the assessment and plan with the resident. I have reviewed the patient's labs and medications. Pt with ETOH withdrawl. Pt on Librium. Psych following. Mg is being repleted. Spoke to at the bedside.
[2018-05-06] MEDS: Multivitamin With Minerals Tab PO SCH (17:52)
--- NOTE | 2018-05-07 03:02 | CON ---
DATE: 05/06/2018 HISTORY OF PRESENT ILLNESS: In short, the patient is a 43-year-old male who was admitted on the medical site, status post seizures. Psych consult was called for evaluation of possible depression and the patient was drinking alcohol recently, ruled out alcohol withdrawals. This principal technical writer evaluated the patient. Discussed with the patient's , Richa, who is next to the patient. The patient gave permission. Phone # [phone] and #[phone] for the future references. As per Richa, she did not know her was drinking. He lost his job about a year ago. The patient was feeling depressed. The patient was hiding his habits and the patient's family was not aware of what was going on. Going back to the patient's presentation, the patient presented very confused. The patient was not able to provide any of the information. The patient did not know where he is. The patient obviously was hallucinating, picking something on the air and also on the gown. The patient also tried to strip naked in front of this principal technical writer. This principal technical writer has impression that the patient is going through alcohol-withdrawal delirium. This principal technical writer gave stat dose of IV push 2 mg. Also this principal technical writer gave Seroquel stat dose. Discussed everything with the patient's as well as attending, Dr. Schaeffer. As per Dr. Schaeffer, the patient was feeling depressed. Vital signs reviewed. Temperature 98.7, pulse is 102, blood pressure 110/78, respirations 16, oxygen saturation is 100. Medications reviewed. The patient is on Librium which this principal technical writer initiated as 50 mg 3 times a day scheduled. Patient is on vitamin B12, Pepcid, folic acid, Ativan 2 mg IV push every 6 hours p.r.n., magnesium oxide, multivitamins and thiamine. Labs reviewed. Coagulation reviewed. Chemistry reviewed. Toxicology reviewed. MENTAL STATUS EXAMINATION: As this principal technical writer described above, the patient presented to be very confused, disorganized. No eye contact. The patient did not know where he is. The patient was not able to answer for the question how his mood is. Affect is flat. The patient tried to strip naked, but this principal technical writer notified nurse and stat dose of medications were given. The patient obviously is hallucinating and picking something in the air and his gown. Insight and judgment seems to be impaired. Impulses are not predictable. IMPRESSION: Most likely, the patient has alcohol-withdrawal delirium, alcohol use disorder. Rule out major depressive disorder. PLAN: Librium was started, Ativan p.r.n., multivitamins and folic acid. The patient was started on Seroquel at the nighttime. Discussed with the medical team, attending, the patient's . Should you have any questions, give me a call back. Also suggested bottler consultation, but this is up to primary team. Thank you very much. Krystal Del Castillo MD
[2018-05-07] MEDS: Multivitamin With Minerals Tab PO SCH (10:10)
[2018-05-07] MEDS: Magnesium Oxide 400 mg Tab UD PO SCH ×3 (10:11→17:22)
--- NOTE | 2018-05-07 10:27 | CP.PCM.PN ---
<Fabi Villanueva - Last Filed: 05/07/18 10:43> Subjective - Date & Time of Evaluation Date of Evaluation: 05/07/18 Time of Evaluation: 07:00 - Subjective Subjective: Medicine Progress note for Dario Fletcher PGY3 Patient seen and examined at bedside. There were no acute overnight events as per nursing staff. Patient reports feeling well this morning. He was eating breakfast and was very tremulous. He was unable to hold a cup. He denies chest pain, shortness of breath, nausea/vomiting/diarrhea, numbness/tingling, fever/chills, visual or auditory hallucinations. Objective - Vital Signs/Intake and Output Vital Signs (last 24 hours): Temp Pulse Resp BP Pulse Ox 98.4 F 83 20 130/94 H 98 05/07/18 06:00 05/07/18 06:00 05/07/18 06:00 05/07/18 06:00 05/07/18 06:00 - Medications Medications: Current Medications Chlordiazepoxide (Librium) 50 mg PO TID [facility]; Protocol Last Admin: 05/07/18 10:11 Dose: 50 mg Cyanocobalamin (Vitamin B12 1000 Mcg Tab) 1,000 mcg PO DAILY [facility] Last Admin: 05/07/18 10:11 Dose: 1,000 mcg Famotidine (Pepcid) 40 mg PO HS [facility] Last Admin: 05/06/18 21:23 Dose: 40 mg Folic Acid (Folic Acid) 1 mg PO DAILY [facility] Last Admin: 05/07/18 10:11 Dose: 1 mg Lorazepam (Ativan) 2 mg IVP Q6H PRN; Protocol PRN Reason: Symptoms of alcohol withdrawl Last Admin: 05/06/18 22:54 Dose: 2 mg Magnesium Oxide (Mag-Ox) 400 mg PO TID [facility] Last Admin: 05/07/18 10:11 Dose: 400 mg Multivitamins/Minerals (Therapeutic-M Tab) 1 tab PO 0800 [facility] Last Admin: 05/07/18 10:10 Dose: 1 tab Thiamine HCl (Vitamin B1 Tab) 100 mg PO DAILY [facility] Last Admin: 05/07/18 10:11 Dose: 100 mg - Labs Labs: 05/03/18 23:32 05/06/18 07:00 PT 12.8 SECONDS (9.4-12.5) H 05/03/18 23:32 INR 1.12 05/03/18 23:32 APTT 28.7 Seconds (25.1-36.5) 05/03/18 23:32 - Constitutional Appears: No Acute Distress - Head Exam Head Exam: ATRAUMATIC, NORMAL INSPECTION, NORMOCEPHALIC - Eye Exam Eye Exam: Normal appearance, PERRL Pupil Exam: NORMAL ACCOMODATION, PERRL - ENT Exam ENT Exam: Mucous Membranes Moist - Neck Exam Neck Exam: Full ROM, Normal Inspection - Respiratory Exam Respiratory Exam: Clear to Ausculation Bilateral, NORMAL BREATHING PATTERN. absent: Rales, Rhonchi, Wheezes - Cardiovascular Exam Cardiovascular Exam: REGULAR RHYTHM, +S1, +S2. absent: Gallop, Rubs, Murmur - GI/Abdominal Exam GI & Abdominal Exam: Soft, Normal Bowel Sounds. absent: Rigid, Tenderness, Mass, Rebound - Extremities Exam Extremities Exam: Normal Inspection. absent: Calf Tenderness, Pedal Edema - Neurological Exam Neurological Exam: Alert, Awake, CN II-XII Intact, Oriented x3 Additional comments: tremulous - Psychiatric Exam Psychiatric exam: Normal Affect, Normal Mood - Skin Skin Exam: Dry, Intact, Warm Assessment and Plan - Assessment and Plan (Free Text) Assessment: This is a 43yo male with past medical history of psoriasis admitted for 1. New onset seizure - Can be secondary to alcohol withdrawal 2. Alcohol withdrawal 3. Hypomagnesia 4. Psoriasis Plan: Psych recs appreciated. Patient placed on Seroquel. Continue Librium, Ativan prn and CIWA protocol. Continue multivitamin, folic acid and thiamine. Patient continues to have high CIWA. Will continue to monitor. No further episodes of seizures. Discussed plan of care with who was at bedside. Case seen, discussed and reviewed with Dr. Schaeffer. Dario Villanueva PGY3 <Lc Schaeffer - Last Filed: 05/07/18 19:19> Objective - Vital Signs/Intake and Output Vital Signs (last 24 hours): Temp Pulse Resp BP Pulse Ox 98.3 F 101 H 20 120/90 97 05/07/18 14:00 05/07/18 14:00 05/07/18 14:00 05/07/18 14:00 05/07/18 14:00 Intake and Output: 05/07/1818 18:59 06:59 Intake Total 450 Balance 450 - Medications Medications: Current Medications Chlordiazepoxide (Librium) 50 mg PO TID [facility]; Protocol Last Admin: 05/07/18 17:22 Dose: 50 mg Cyanocobalamin (Vitamin B12 1000 Mcg Tab) 1,000 mcg PO DAILY [facility] Last Admin: 05/07/18 10:11 Dose: 1,000 mcg Famotidine (Pepcid) 40 mg PO [facility] Last Admin: 05/06/18 21:23 Dose: 40 mg Folic Acid (Folic Acid) 1 mg PO DAILY [facility] Last Admin: 05/07/18 10:11 Dose: 1 mg Lorazepam (Ativan) 2 mg IVP Q6H PRN; Protocol PRN Reason: Symptoms of alcohol withdrawl Last Admin: 05/06/18 22:54 Dose: 2 mg Magnesium Oxide (Mag-Ox) 400 mg PO TID [facility] Last Admin: 05/07/18 17:22 Dose: 400 mg Multivitamins/Minerals (Therapeutic-M Tab) 1 tab PO 0800 [facility] Last Admin: 05/07/18 10:10 Dose: 1 tab Quetiapine Fumarate (Seroquel) 50 mg PO [facility]; Protocol Thiamine HCl (Vitamin B1 Tab) 100 mg PO DAILY [facility] Last Admin: 05/07/18 10:11 Dose: 100 mg - Labs Labs: 05/03/18 23:32 05/06/18 07:00 PT 12.8 SECONDS (9.4-12.5) H 05/03/18 23:32 INR 1.12 05/03/18 23:32 APTT 28.7 Seconds (25.1-36.5) 05/03/18 23:32 Assessment and Plan - Assessment and Plan (Free Text) Plan: Pt seen and examined by me. I have reviewed the note by the medical assembler. The case was discussed and reviewed with the resident. I reviewed the medications and labs. Pt seen is still withdrawing. He is on Librium. Once he is better pt will need to be discharged. He has a adolfo CIWA scare and is on Librium and Ativan. Continue with current treatment.
--- NOTE | 2018-05-07 12:48 | CT ---
Date of service: 05/07/2018 PROCEDURE: CT HEAD WITHOUT CONTRAST. HISTORY: fall hit head COMPARISON: Noncontrast brain MRI and CT, both dated 05/04/2018. TECHNIQUE: Axial computed tomography images were obtained through the head/brain without intravenous contrast. Radiation dose: Total exam DLP = 1024.11 mGy-cm. This CT exam was performed using one or more of the following dose reduction techniques: Automated exposure control, adjustment of the mA and/or kV according to patient size, and/or use of iterative reconstruction technique. FINDINGS: HEMORRHAGE: No intracranial hemorrhage. BRAIN: Mild generalized atrophy pattern is reiterated, nonspecific finding. No interval edema is appreciated above or below the tentorium or throughout the brainstem. No definitive acute interval findings appreciated. VENTRICLES: Unremarkable. No hydrocephalus. CALVARIUM: No destructive bony lesion or displaced fracture identified including through the skullbase. PARANASAL SINUSES: Unremarkable as visualized. No significant inflammatory changes. MASTOID AIR CELLS: Unremarkable as visualized. No inflammatory changes. OTHER FINDINGS: None. IMPRESSION: Stable limited generalized atrophy pattern without acute interval findings as compared prior brain imaging 05/04/[address] and MRI. No interval fracture appreciable.
--- NOTE | 2018-05-07 13:41 | PCM.FALL ---
Post Fall Progress Note - Post Fall Fall Date: 05/07/18 Fall Time: 11:24 Description of Fall: Patient says he was walking to grab water. During this process, he tripped and fell. Fall was unwitnessed Patient states he hit his head specifically in the right supraorbital region. Patient denies LOC and states he remembers the whole event. Patient denies any confusion. Blood pressure at time of fall was 93/70 and HR was 75. Patient will go for head ct and is not on any anticoagulation. - Post Fall Exam Vital Sign: Temp Pulse Resp BP Pulse Ox 98.4 F 83 20 130/94 H 98 05/07/18 06:00 05/07/18 06:00 05/07/18 06:00 05/07/18 06:00 05/07/18 06:00 Skull Exam: Negative for: Scalp wound, Scalp hematoma, Scalp depression, Ridge in skull Eye Exam: Positive for: Pupils equal, Pupils reactive Skin Exam: Negative for: Lacerations, Bruising Mouth Exam: Negative for: Teeth dislodge Neck Exam: Negative for: Tenderness, Tingling Spinal Exam: Negative for: Tenderness, Tingling Abdomen Exam: Negative for: Tenderness Pelvic Exam: Negative for: Tenderness Impression/Plan: A: Fall P: Likely 2/[address] w/o contrast Monitor vitals No LOC; No jerking motions noted; No incontinence; No post-ictal confusion noted
--- NOTE | 2018-05-07 18:56 | PN ---
DATE: 05/07/2018 FOLLOWUP NOTE SUBJECTIVE: The patient was followed up today. Shortly, the patient is alcoholic, was admitted status post seizures, most likely it is related to withdrawal seizures. Please see initial note for more detailed information. This insurance underwriter increased the dose of benzodiazepines. Librium was then initiated 50 mg three times a day. Also, Seroquel was given for alcohol withdrawal delirium. The patient slept better. Vital signs are better controlled. The patient was evaluated. The patient presented with some improvement, but still has upper extremity tremor. The patient was able to participate in the interview, was alert and oriented to compare with yesterday when the patient was actively hallucinating while the interview and was trying to take his clothes off and was very confused and not knowing where he is. It is huge improvement. This insurance underwriter spoke to the social studies teacher about potential rehab. The patient wants to go to the intensive outpatient program for substance abuse. The patient denied that he feels depressed. The patient denied thoughts of harming himself or others. The patient denied intent or plan. PHYSICAL EXAMINATION: VITAL SIGNS: As this insurance underwriter mentioned earlier, stable. Temperature 98.3; pulse is 101, but for past two days, it was about 83; blood pressure was 120/90; respirations 20; oxygen saturation is 97%. MEDICATIONS: Reviewed. The patient is currently on Librium 50 mg three times a day,vitamin B12, Pepcid, folic acid, Ativan as needed, magnesium oxide, multivitamins, thiamine, and folic acid. Also, Seroquel will be recommended at the nighttime 50 mg to clear his psychotic symptoms. The patient got one dose yesterday and responded well. LABORATORY DATA: Reviewed. Microbiology reviewed. MENTAL STATUS EXAMINATION: The patient is more alert. Fair eye contact. Speech was underproductive, low volume. The patient still has difficulty to concentrate and stay focused, but much improved. Mood described as good. Affect was reactive, mood congruent. Thought process was coherent and goal directed. Thought content: The patient denied visual, auditory, or tactile hallucinations. Denied paranoid ideation. Denied thoughts of harming himself or others. Denied intent or plan. Last time hallucinations were yesterday. IMPRESSION: Alcohol withdrawal delirium which is improving, alcohol use disorder. PLAN: Continue current management. Continue current medications. Seroquel could be continued 4 weeks from now. Librium should be tapered down about 20% a day, starts tomorrow. Monitor vital signs. Discussed with nursing staff as well as Dr. Schaeffer yesterday. Discussed with the patient's who is next to the patient. Naltrexone should be considered. The patient is not psychotic. The patient is not depressed. The patient is not homicidal or suicidal. The patient not in any imminent danger to self or others. This insurance underwriter will sign off. In case, the patient has change in mental status, please call psychiatrist on-call. Thank you very much for letting me participate in care of your patient. Krystal Del Castillo MD [facility]
[2018-05-08] MEDS: Multivitamin With Minerals Tab PO SCH (10:36)
[2018-05-08] MEDS: Magnesium Oxide 400 mg Tab UD PO SCH ×3 (10:37→17:28)
--- NOTE | 2018-05-08 20:35 | PN ---
DATE: 05/08/2018 SUBJECTIVE: The patient is 43 years old, seen and examined, seemed to be somewhat confused and disoriented. Eating and tolerating. PHYSICAL EXAMINATION: VITAL SIGNS: He is afebrile, pulse 92, respiration 18, and blood pressure 109/82. LUNGS: Bilateral fair airflow. No rhonchi or crackle. HEART: S1 and S2 audible. ABDOMEN: Soft, nontender. No rebound, no guarding. NEUROLOGIC: He is awake and alert, but confused and disoriented. LABORATORY EXAM: There is no new lab available today. ASSESSMENT: 1. Alcohol withdrawal seizure. 2. Electrolyte imbalance. 3. History of psoriasis. 4. Deconditioning and difficulty walking. PLAN: Follow up his electrolytes in the a.m. Currently, he is on tapering dose of Librium. Psych is following the patient. We will reevaluate the patient in a.m. Konstantin Salcido MD
[2018-05-09 08:31] LABS: BASO # 0.05 K/mm3 (0.0-2.0); BASO % 0.9 % (0.0-3.0); EOS # 0.1 (0.0-0.7); EOS % 2.6 % (1.5-5.0); GRAN # 3.12 (1.4-6.5); LYMPH # 1.1 (1.2-3.4); LYMPH % 20.3 % (22.0-35.0); MEAN CELL VOLUME 104.6 fl (80.0-105.0); MEAN CORPUSCULAR HEMOGLOBIN 33.6 pg (25.0-35.0); MEAN CORPUSCULAR HGB CONC 32.2 g/dl (31.0-37.0); MEAN PLATELET VOLUME 9.6 fl (7.0-11.0); MONO % 18.2 % (1.0-6.0); RBC 3.27 10^6/uL (3.5-6.1); RED CELL DISTRIBUTION WIDTH 14.3 % (11.5-14.5); WHITE BLOOD COUNT 5.4 10^3/ul (4.5-11.0)
[2018-05-09 08:46] LABS: ALB/GLOB RATIO 1.1 (1.1-1.8); ALBUMIN 3.5 g/dL (3.0-4.8); ALT/SGPT 56 U/L (7-56); AST/SGOT 93 U/L (17-59); BLOOD UREA NITROGEN 5 mg/dL (7-21); CALCIUM 10.2 mg/dL (8.4-10.5); GFR NON-AFRICAN AMERICAN > 60
[2018-05-09] MEDS: Magnesium Oxide 400 mg Tab UD PO SCH ×3 (09:07→17:19)
[2018-05-09] MEDS: Multivitamin With Minerals Tab PO SCH (09:08)
--- NOTE | 2018-05-09 20:45 | PN ---
DATE: 05/09/2018 SUBJECTIVE: The patient is 43 years old, seen and examined, sitting in chair, seems to be comfortable. No nausea or vomiting. Eating and tolerating. PHYSICAL EXAMINATION: VITAL SIGNS: He is afebrile, pulse 91, respirations 18, blood pressure 128/93. LUNGS: Bilateral fair air flow. No rhonchi or crackle. HEART: S1, S2 audible. ABDOMEN: Soft, nontender. No rebound. No guarding. NEUROLOGIC: He is awake, alert, oriented, somewhat confused at time. He has tremor in both upper extremities. EXTREMITIES: Bilateral legs, no edema. LABORATORY DATA: WBC 5.4, hemoglobin 11, hematocrit 34, platelet of 258. Chemistry: Sodium 138, potassium 4.4, chloride 102, CO2 of 29, BUN 5, creatinine 0.8. Blood sugar of 76. Stool for C. difficile is negative. ASSESSMENT: 1. Seizure disorder. 2. Alcohol withdrawal. 3. Electrolyte imbalance. 4. Deconditioning and difficulty walking. PLAN: Currently patient is on Ativan p.r.n. He is on folic acid. He is getting Librium. He is on magnesium supplement and getting multivitamin. Encourage physical therapy. We will follow up patient. Dr. Schaeffer will follow up patient in a.m. Konstantin Salcido MD
[2018-05-10] MEDS: Magnesium Oxide 400 mg Tab UD PO SCH ×3 (10:57→18:02)
[2018-05-10] MEDS: Multivitamin With Minerals Tab PO SCH (10:57)
--- NOTE | 2018-05-10 11:23 | CP.PCM.PN ---
<Fabi Villanueva - Last Filed: 05/10/18 11:18> Subjective - Date & Time of Evaluation Date of Evaluation: 05/10/18 Time of Evaluation: 07:00 - Subjective Subjective: Medicine Progress Note for Dario Fletcher PGY3 Patient seen and examined at bedside. There were no acute overnight events as per nursing staff. Patient did have some visual hallucinations overnight but was not agitated as per nurse. This am, patient is resting in bed. He denies chest pain, shortness of breath, nausea/vomiting/diarrhea, visual/auditory hallucinations, dysuria or hematuria. Objective - Vital Signs/Intake and Output Vital Signs (last 24 hours): Temp Pulse Resp BP Pulse Ox 97.6 F 80 20 92/61 L 94 L 05/10/18 06:00 05/10/18 06:00 05/10/18 06:00 05/10/18 06:00 05/10/18 06:00 Intake and Output: 05/10/18 05/10/18 06:59 18:59 Intake Total 600 Output Total 250 Balance 350 - Medications Medications: Current Medications Chlordiazepoxide (Librium) 50 mg PO TID [facility]; Protocol Last Admin: 05/10/18 10:57 Dose: 50 mg Cyanocobalamin (Vitamin B12 1000 Mcg Tab) 1,000 mcg PO DAILY [facility] Last Admin: 05/10/18 10:57 Dose: 1,000 mcg Famotidine (Pepcid) 40 mg PO [facility] Last Admin: 05/09/18 21:41 Dose: 40 mg Folic Acid (Folic Acid) 1 mg PO DAILY [facility] Last Admin: 05/10/18 10:57 Dose: 1 mg Lorazepam (Ativan) 2 mg IVP Q6H PRN; Protocol PRN Reason: Symptoms of alcohol withdrawl Last Admin: 05/10/18 08:34 Dose: 2 mg Magnesium Oxide (Mag-Ox) 400 mg PO TID [facility] Last Admin: 05/10/18 10:57 Dose: 400 mg Multivitamins/Minerals (Therapeutic-M Tab) 1 tab PO 0800 [facility] Last Admin: 05/10/18 10:57 Dose: 1 tab Quetiapine Fumarate (Seroquel) 50 mg PO HS [facility]; Protocol Last Admin: 05/09/18 21:41 Dose: 50 mg Thiamine HCl (Vitamin B1 Tab) 100 mg PO DAILY [facility] Last Admin: 05/10/18 10:57 Dose: 100 mg - Labs Labs: 05/09/18 07:00 05/09/18 07:00 PT 12.8 SECONDS (9.4-12.5) H 05/03/18 23:32 INR 1.12 05/03/18 23:32 APTT 28.7 Seconds (25.1-36.5) 05/03/18 23:32 - Constitutional Appears: No Acute Distress - Head Exam Head Exam: ATRAUMATIC, NORMAL INSPECTION, NORMOCEPHALIC - Eye Exam Eye Exam: Normal appearance, PERRL Pupil Exam: NORMAL ACCOMODATION, PERRL - ENT Exam ENT Exam: Mucous Membranes Moist - Neck Exam Neck Exam: Full ROM - Respiratory Exam Respiratory Exam: Clear to Ausculation Bilateral, NORMAL BREATHING PATTERN. absent: Rales, Rhonchi, Wheezes - Cardiovascular Exam Cardiovascular Exam: Tachycardia, REGULAR RHYTHM, +S1, +S2. absent: Gallop, Rubs, Murmur - GI/Abdominal Exam GI & Abdominal Exam: Soft, Normal Bowel Sounds. absent: Rigid, Tenderness, Rebound - Extremities Exam Extremities Exam: Normal Capillary Refill, Normal Inspection. absent: Calf Tenderness, Pedal Edema - Neurological Exam Neurological Exam: Alert, Awake, CN II-XII Intact, Oriented x3 Additional comments: Tremulous on exam - Psychiatric Exam Psychiatric exam: Normal Affect, Normal Mood - Skin Skin Exam: Dry, Warm Assessment and Plan - Assessment and Plan (Free Text) Assessment: This is a 43yo male with past medical history of psoriasis admitted for 1. Alcohol withdrawal 2. Seizure - secondary to alcohol withdrawal 3. Psoriasis Plan: Will taper Librium as tolerated. Ativan prn agitation and Seroquel HS. Continue multivitamin, thiamine and folic acid. Psych and neuro recs appreciated. Patient will need physical therapy to evaluate for functional status. He may need [facility]. CIWA still elevated. Patient is tolerating diet. Case seen, discussed and reviewed with Dr. Laury Villanueva PGY3 <Lc Schaeffer - Last Filed: 05/10/18 21:54> Objective - Vital Signs/Intake and Output Vital Signs (last 24 hours): Temp Pulse Resp BP Pulse Ox 97.7 F 96 H 16 121/63 100 05/10/18 14:00 05/10/18 14:00 05/10/18 14:00 05/10/18 16:00 05/10/18 14:00 Intake and Output: 05/10/18 05/11/18 18:59 06:59 Intake Total 120 Balance 120 - Medications Medications: Current Medications Chlordiazepoxide (Librium) 50 mg PO BID [facility]; Protocol Last Admin: 05/10/18 18:01 Dose: 50 mg Cyanocobalamin (Vitamin B12 1000 Mcg Tab) 1,000 mcg PO DAILY [facility] Last Admin: 05/10/18 10:57 Dose: 1,000 mcg Folic Acid (Folic Acid) 1 mg PO DAILY [facility] Last Admin: 05/10/18 10:57 Dose: 1 mg Lorazepam (Ativan) 2 mg IVP Q6H PRN; Protocol PRN Reason: Symptoms of alcohol withdrawl Last Admin: 05/10/18 08:34 Dose: 2 mg Magnesium Oxide (Mag-Ox) 400 mg PO TID [facility] Last Admin: 05/10/18 18:02 Dose: 400 mg Multivitamins/Minerals (Therapeutic-M Tab) 1 tab PO 0800 [facility] Last Admin: 05/10/18 10:57 Dose: 1 tab Quetiapine Fumarate (Seroquel) 50 mg PO HS [facility]; Protocol Last Admin: 05/09/18 21:41 Dose: 50 mg Thiamine HCl (Vitamin B1 Tab) 100 mg PO DAILY [facility] Last Admin: 05/10/18 10:57 Dose: 100 mg - Labs Labs: 05/09/18 07:00 05/09/18 07:00 PT 12.8 SECONDS (9.4-12.5) H 05/03/18 23:32 INR 1.12 05/03/18 23:32 APTT 28.7 Seconds (25.1-36.5) 05/03/18 23:32 Assessment and Plan - Assessment and Plan (Free Text) Plan: Pt seen and examined by me. I have reviewed the note by the medical staff services manager. The case was discussed and reviewed with the resident. I reviewed the medications and labs. Pt is still withdrawing and detoxing in the hospital. He is not able to ambulate. Spoke to the pt's father at bedside. He is on Librium and Ativan. He will most likely need to go to [facility]. Will speak to psychologist social about this.
[2018-05-11] MEDS: Multivitamin With Minerals Tab PO SCH (08:22)
--- NOTE | 2018-05-11 09:13 | CP.PCM.DIS ---
<RichFabi - Last Filed: 05/11/18 13:14> Provider - Provider Date of Admission: 05/05/18 13:02 Attending physician: Lc Schaeffer MD Primary care physician: Lc Schaeffer MD Consults: Neurology: Rosalba Psych: Magdalene Time Spent in preparation of Discharge (in minutes): 35 Hospital Course - Lab Results Lab Results: Micro Results 05/04/18 09:20 Stool C. difficile Antigen & Toxins A,B - Final Most Recent Lab Values WBC 5.4 10^3/ul (4.5-11.0) D 05/09/18 07:00 RBC 3.27 10^6/uL (3.5-6.1) L 05/09/18 07:00 Hgb 11.0 g/dL (14.0-18.0) L 05/09/18 07:00 Hct 34.2 % (42.0-52.0) L 05/09/18 07:00 MCV 104.6 fl (80.0-105.0) D 05/09/18 07:00 MCH 33.6 pg (25.0-35.0) 05/09/18 07:00 MCHC 32.2 g/dl (31.0-37.0) 05/09/18 07:00 RDW 14.3 % (11.5-14.5) 05/09/18 07:00 Plt Count 258 10^3/uL (120.0-450.0) 05/09/18 07:00 MPV 9.6 fl (7.0-11.0) 05/09/18 07:00 Gran % 58.0 % (50.0-68.0) 05/09/18 07:00 Lymph % (Auto) 20.3 % (22.0-35.0) L 05/09/18 07:00 Pender % (Auto) 18.2 % (1.0-6.0) H 05/09/18 07:00 Eos % (Auto) 2.6 % (1.5-5.0) 05/09/18 07:00 Baso % (Auto) 0.9 % (0.0-3.0) 05/09/18 07:00 Gran # 3.12 (1.4-6.5) 05/09/18 07:00 Lymph # (Auto) 1.1 (1.2-3.4) L 05/09/18 07:00 Pender # (Auto) 1.0 (0.1-0.6) H 05/09/18 07:00 Eos # (Auto) 0.1 (0.0-0.7) 05/09/18 07:00 Baso # (Auto) 0.05 K/mm3 (0.0-2.0) 05/09/18 07:00 PT 12.8 SECONDS (9.4-12.5) H 05/03/18 23:32 INR 1.12 05/03/18 23:32 APTT 28.7 Seconds (25.1-36.5) 05/03/18 23:32 Sodium 138 mmol/L (132-148) 05/09/18 07:00 Potassium 4.4 mmol/L (3.6-5.0) 05/09/18 07:00 Chloride 102 mmol/L (98-107) 05/09/18 07:00 Carbon Dioxide 29 mmol/L (21-33) 05/09/18 07:00 Anion Gap 12 (10-20) 05/09/18 07:00 BUN 5 mg/dL (7-21) L 05/09/18 07:00 Creatinine 0.8 mg/dl (0.8-1.5) 05/09/18 07:00 Est GFR ( Amer) > 60 05/09/18 07:00 Est GFR (Non-Af Amer) > 60 05/09/18 07:00 Random Glucose 76 mg/dL (70-110) 05/09/18 07:00 Calcium 10.2 mg/dL (8.4-10.5) 05/09/18 07:00 Phosphorus 2.5 mg/dL (2.5-4.5) 05/06/18 07:00 Magnesium 2.1 mg/dL (1.7-2.2) 05/09/18 07:00 Total Bilirubin 0.6 mg/dL (0.2-1.3) 05/09/18 07:00 AST 93 U/L (17-59) H 05/09/18 07:00 ALT 56 U/L (7-56) 05/09/18 07:00 Alkaline Phosphatase 111 U/L (38-126) 05/09/18 07:00 Lactate Dehydrogenase 608 U/L (333-699) 05/03/18 23:32 Total Creatine Kinase 92 U/L (35-230) 05/03/18 23:32 Troponin I < 0.01 ng/mL 05/03/18 23:32 Total Protein 6.8 g/dL (5.8-8.3) 05/09/18 07:00 Albumin 3.5 g/dL (3.0-4.8) 05/09/18 07:00 Globulin 3.3 gm/dL 05/09/18 07:00 Albumin/Globulin Ratio 1.1 (1.1-1.8) 05/09/18 07:00 Urine Opiates Screen Negative (NEGATIVE) 05/04/18 06:00 Urine Methadone Screen Negative (NEGATIVE) 05/04/18 06:00 Ur Barbiturates Screen Negative (NEGATIVE) 05/04/18 06:00 Ur Phencyclidine Scrn Negative (NEGATIVE) 05/04/18 06:00 Ur Amphetamines Screen Negative (NEGATIVE) 05/04/18 06:00 U Benzodiazepines Scrn Negative (NEGATIVE) 05/04/18 06:00 U Oth Cocaine Metabols Negative (NEGATIVE) 05/04/18 06:00 U Cannabinoids Screen Negative (NEGATIVE) 05/04/18 06:00 Alcohol, Quantitative < 10 mg/dL (0-10) 05/03/18 23:32 - Hospital Course Hospital Course: This is a 43yo male with past medical history of psoriasis and alcohol abuse who was admitted for seizure secondary to alcohol withdrawal. Head CT showed atrophy, but was negative for acute pathology. Patient was placed on Librium and ativan for alcohol and was tapered down. He was evaluated by Psych and was placed on Seroquel at night. Patient was evaluated by physical therapy who recommended [facility]. Patient will be d/c to [facility] once accepted and bed available. Spoke with patient's who is aware and agrees with plan. was given information for intensive outpatient alcohol rehab for her . - Date & Time of H&P Date of H&P: 05/04/18 Time of H&P: 06:30 Discharge Exam - Head Exam Head Exam: ATRAUMATIC, NORMAL INSPECTION, NORMOCEPHALIC - Eye Exam Eye Exam: Normal appearance, PERRL Pupil Exam: NORMAL ACCOMODATION - ENT Exam ENT Exam: Mucous Membranes Moist - Respiratory Exam Respiratory Exam: Clear to PA & Lateral, NORMAL BREATHING PATTERN, UNREMARKABLE. absent: Rales, Rhonchi, Wheezes - Cardiovascular Exam Cardiovascular Exam: REGULAR RHYTHM, +S1, +S2. absent: Gallop, Rubs, Systolic Murmur - GI/Abdominal Exam GI & Abdominal Exam: Normal Bowel Sounds, Soft, Unremarkable. absent: Mass, Rebound, Tenderness - Extremities Exam Extremities exam: normal inspection - Neurological Exam Neurological exam: Alert, CN II-XII Intact, Oriented x3 - Psychiatric Exam Psychiatric exam: Normal Affect, Normal Mood - Skin Skin Exam: Dry, Warm Discharge Plan - Discharge Medications Prescriptions: Multivit-Min/FA/Lycopen/Lutein [Eq Complete Multivitamin Tab] 1 each PO DAILY #30 tablet - Follow Up Plan Condition: GOOD Disposition: HOME/ ROUTINE Instructions: Alcohol Withdrawal (DC), Alcohol Abuse and Alcoholism (DC), Chlordiazepoxide, Quetiapine Referrals: Lc Schaeffer MD [Primary Care Provider] - <Lc Schaeffer - Last Filed: 05/11/18 15:10> Provider - Provider Date of Admission: 05/05/18 13:02 Attending physician: Lc Schaeffer MD Primary care physician: Lc Schaeffer MD Hospital Course - Lab Results Lab Results: Micro Results 05/04/18 09:20 Stool C. difficile Antigen & Toxins A,B - Final Most Recent Lab Values WBC 5.4 10^3/ul (4.5-11.0) D 05/09/18 07:00 RBC 3.27 10^6/uL (3.5-6.1) L 05/09/18 07:00 Hgb 11.0 g/dL (14.0-18.0) L 05/09/18 07:00 Hct 34.2 % (42.0-52.0) L 05/09/18 07:00 MCV 104.6 fl (80.0-105.0) D 05/09/18 07:00 MCH 33.6 pg (25.0-35.0) 05/09/18 07:00 MCHC 32.2 g/dl (31.0-37.0) 05/09/18 07:00 RDW 14.3 % (11.5-14.5) 05/09/18 07:00 Plt Count 258 10^3/uL (120.0-450.0) 05/09/18 07:00 MPV 9.6 fl (7.0-11.0) 05/09/18 07:00 Gran % 58.0 % (50.0-68.0) 05/09/18 07:00 Lymph % (Auto) 20.3 % (22.0-35.0) L 05/09/18 07:00 Pender % (Auto) 18.2 % (1.0-6.0) H 05/09/18 07:00 Eos % (Auto) 2.6 % (1.5-5.0) 05/09/18 07:00 Baso % (Auto) 0.9 % (0.0-3.0) 05/09/18 07:00 Gran # 3.12 (1.4-6.5) 05/09/18 07:00 Lymph # (Auto) 1.1 (1.2-3.4) L 05/09/18 07:00 Pender # (Auto) 1.0 (0.1-0.6) H 05/09/18 07:00 Eos # (Auto) 0.1 (0.0-0.7) 05/09/18 07:00 Baso # (Auto) 0.05 K/mm3 (0.0-2.0) 05/09/18 07:00 PT 12.8 SECONDS (9.4-12.5) H 05/03/18 23:32 INR 1.12 05/03/18 23:32 APTT 28.7 Seconds (25.1-36.5) 05/03/18 23:32 Sodium 138 mmol/L (132-148) 05/09/18 07:00 Potassium 4.4 mmol/L (3.6-5.0) 05/09/18 07:00 Chloride 102 mmol/L (98-107) 05/09/18 07:00 Carbon Dioxide 29 mmol/L (21-33) 05/09/18 07:00 Anion Gap 12 (10-20) 05/09/18 07:00 BUN 5 mg/dL (7-21) L 05/09/18 07:00 Creatinine 0.8 mg/dl (0.8-1.5) 05/09/18 07:00 Est GFR ( Amer) > 60 05/09/18 07:00 Est GFR (Non-Af Amer) > 60 05/09/18 07:00 Random Glucose 76 mg/dL (70-110) 05/09/18 07:00 Calcium 10.2 mg/dL (8.4-10.5) 05/09/18 07:00 Phosphorus 2.5 mg/dL (2.5-4.5) 05/06/18 07:00 Magnesium 2.1 mg/dL (1.7-2.2) 05/09/18 07:00 Total Bilirubin 0.6 mg/dL (0.2-1.3) 05/09/18 07:00 AST 93 U/L (17-59) H 05/09/18 07:00 ALT 56 U/L (7-56) 05/09/18 07:00 Alkaline Phosphatase 111 U/L (38-126) 05/09/18 07:00 Lactate Dehydrogenase 608 U/L (333-699) 05/03/18 23:32 Total Creatine Kinase 92 U/L (35-230) 05/03/18 23:32 Troponin I < 0.01 ng/mL 05/03/18 23:32 Total Protein 6.8 g/dL (5.8-8.3) 05/09/18 07:00 Albumin 3.5 g/dL (3.0-4.8) 05/09/18 07:00 Globulin 3.3 gm/dL 05/09/18 07:00 Albumin/Globulin Ratio 1.1 (1.1-1.8) 05/09/18 07:00 Urine Opiates Screen Negative (NEGATIVE) 05/04/18 06:00 Urine Methadone Screen Negative (NEGATIVE) 05/04/18 06:00 Ur Barbiturates Screen Negative (NEGATIVE) 05/04/18 06:00 Ur Phencyclidine Scrn Negative (NEGATIVE) 05/04/18 06:00 Ur Amphetamines Screen Negative (NEGATIVE) 05/04/18 06:00 U Benzodiazepines Scrn Negative (NEGATIVE) 05/04/18 06:00 U Oth Cocaine Metabols Negative (NEGATIVE) 05/04/18 06:00 U Cannabinoids Screen Negative (NEGATIVE) 05/04/18 06:00 Alcohol, Quantitative < 10 mg/dL (0-10) 05/03/18 23:32 - Hospital Course Hospital Course: Pt seen and examined by me. I have reviewed the note by the director medical surgical. The case was discussed and reviewed with the resident. I reviewed the medications and labs.Pt with ETOH withdrawal. He has difficulty in walking. He will need [facility]. He is on Librium and Ativan which is starting to get tapered. He is eating.
[2018-05-11] MEDS: Magnesium Oxide 400 mg Tab UD PO SCH ×3 (10:17→17:18)
[2018-05-11 15:55] VITALS: O2SAT 97
[2018-05-12 07:50] VITALS: BP 114/85; PULSE 96; RESP 18; TEMP 97.8
--- NOTE | 2018-05-12 08:13 | CP.PCM.PN ---
Subjective - Date & Time of Evaluation Date of Evaluation: 05/12/18 Time of Evaluation: 07:00 - Subjective Subjective: Medicine Progress Note for Dario Fletcher PGY3 Patient seen and examined at bedside. There were no acute overnight events as per nursing staff. Patient is resting in bed. He reports feeling well. He denies chest pain, shortness of breath, cough, nausea/vomiting/diarrhea, fever/chills, numbness/tingling, dysuria or hematuria. Objective - Vital Signs/Intake and Output Vital Signs (last 24 hours): Temp Pulse Resp BP Pulse Ox 97.8 F 96 H 18 114/85 97 05/12/18 07:46 05/12/18 07:46 05/12/18 07:46 05/12/18 07:46 05/12/18 07:46 Intake and Output: 05/12/18 05/12/18 06:59 18:59 Intake Total 120 Balance 120 - Medications Medications: Current Medications Chlordiazepoxide (Librium) 25 mg PO Q8 [facility]; Protocol Last Admin: 05/11/18 22:28 Dose: 25 mg Cyanocobalamin (Vitamin B12 1000 Mcg Tab) 1,000 mcg PO DAILY [facility] Last Admin: 05/11/18 10:17 Dose: 1,000 mcg Folic Acid (Folic Acid) 1 mg PO DAILY [facility] Last Admin: 05/11/18 10:17 Dose: 1 mg Lorazepam (Ativan) 1 mg PO TID [facility]; Protocol PRN Reason: Agitation Magnesium Oxide (Mag-Ox) 400 mg PO TID [facility] Last Admin: 05/11/18 17:18 Dose: 400 mg Multivitamins/Minerals (Therapeutic-M Tab) 1 tab PO 0800 [facility] Last Admin: 05/11/18 08:22 Dose: 1 tab Quetiapine Fumarate (Seroquel) 25 mg PO HS [facility]; Protocol Last Admin: 05/11/18 22:28 Dose: 25 mg Thiamine HCl (Vitamin B1 Tab) 100 mg PO DAILY [facility] Last Admin: 05/11/18 10:17 Dose: 100 mg - Labs Labs: 05/09/18 07:00 05/09/18 07:00 PT 12.8 SECONDS (9.4-12.5) H 05/03/18 23:32 INR 1.12 05/03/18 23:32 APTT 28.7 Seconds (25.1-36.5) 05/03/18 23:32 - Constitutional Appears: No Acute Distress - Head Exam Head Exam: ATRAUMATIC, NORMAL INSPECTION, NORMOCEPHALIC - Eye Exam Eye Exam: Normal appearance, PERRL Pupil Exam: NORMAL ACCOMODATION, PERRL - ENT Exam ENT Exam: Mucous Membranes Moist - Respiratory Exam Respiratory Exam: Clear to Ausculation Bilateral, NORMAL BREATHING PATTERN. absent: Rales, Rhonchi, Wheezes - Cardiovascular Exam Cardiovascular Exam: REGULAR RHYTHM, +S1, +S2. absent: Gallop, Rubs, Murmur - GI/Abdominal Exam GI & Abdominal Exam: Soft, Normal Bowel Sounds. absent: Rigid, Tenderness, Mass, Rebound - Extremities Exam Extremities Exam: Normal Inspection. absent: Calf Tenderness, Pedal Edema - Neurological Exam Neurological Exam: Alert, Awake, CN II-XII Intact, Oriented x3 - Skin Skin Exam: Dry, Intact, Warm Assessment and Plan - Assessment and Plan (Free Text) Assessment: 1. Alcohol withdrawal 2. Seizure - secondary to alcohol withdrawal 3. Psoriasis Plan: Labs and medications reviewed. CIWA trending down. Continue to taper Librium, Seroquel and Ativan. Will continue Thiamine, B12, mutvitamin and folic acid. Patient awaiting to go to [facility] once bed available. I spoke with father and sister yesterday at length. Both agree with plan of care. Case seen, discussed and reviewed with Dr. Laury Villanueva PGY3
[2018-05-12] MEDS: Magnesium Oxide 400 mg Tab UD PO SCH ×3 (09:40→17:47)
[2018-05-12] MEDS: Multivitamin With Minerals Tab PO SCH (09:40)
--- NOTE | 2018-05-12 15:24 | RAD ---
Date of service: 05/12/2018 HISTORY: SOB COMPARISON: 05/03/2018 FINDINGS: LUNGS: No active pulmonary disease. PLEURA: No significant pleural effusion identified, no pneumothorax apparent. CARDIOVASCULAR: Normal. OSSEOUS STRUCTURES: No significant abnormalities. VISUALIZED UPPER ABDOMEN: Normal. OTHER FINDINGS: None. IMPRESSION: No active disease.
== END 2018-05-12 21:51 | DRG 101 ==
LOC: ED 22:50 → ERH 05-04 02:01 → 2RNO 05-04 15:09 → 2RSO 05-04 20:18 → OBSVTOIN 05-05 13:02 → 2RSO 05-05 15:01 → 5RSO 05-06 01:01
PROVIDERS: ADMIT Internal Medicine Nephrology; ATTEND Internal Medicine Nephrology
DX: G40.909 Epilepsy, unspecified, not intractable, without status epilepticus (principal); F10.231 Alcohol dependence with withdrawal delirium; E87.1 Hypo-osmolality and hyponatremia; E87.6 Hypokalemia; E83.42 Hypomagnesemia; F32.9 Major depressive disorder, single episode, unspecified; L40.9 Psoriasis, unspecified; F17.210 Nicotine dependence, cigarettes, uncomplicated; R40.2412 Glasgow coma scale score 13-15, at arrival to emergency department

== ENCOUNTER 2018-06-02 10:09 | Observation (INO) | payer OTHER ==
--- NOTE | 2018-06-02 10:37 | ED PDOC ---
Addendum entered and electronically signed by Santos Garrido PA 06/03/18 10:55: Addendum Addendum: 06/03/18 10:55 Just to be able to sign Original Note: Arrival/HPI - General Historian: Patient - History of Present Illness Narrative History of Present Illness (Text): 06/02/18 10:22 43yo male with pmhx of alcohol abuse, seizure bib EMS from [facility] for psychiatric evaluation. Per the NH paper and the spouse by the bedside, patient was agitated and combative with the [facility] staffs last night. The spouse states the psychiatrist referred him to ED for psychiatric evaluation. Patient appear delirious and confused. Not answering questions correctly. <Santos Garrido - Last Filed: 06/02/18 16:34> <Noemy Marquez - Last Filed: 06/02/18 17:41> - General Time Seen by Provider: 06/02/18 10:12 Past Medical History - Provider Review Nursing Documentation Reviewed: Yes - Cardiac Hx Cardiac Disorders: No - Pulmonary Hx Respiratory Disorders: No - Neurological Hx Dizziness: Yes - HEENT Hx HEENT Disorder: No - Renal Hx Renal Disorder: No - Endocrine/Metabolic Hx Endocrine Disorders: No - Hematological/Oncological Hx Blood Disorders: No - Integumentary Hx Dermatological Disorder: No - Musculoskeletal/Rheumatological Hx Musculoskeletal Disorders: No Hx Falls: No - Gastrointestinal Hx Gastrointestinal Disorders: Yes Other/Comment: legionnaires - Genitourinary/Gynecological Hx Genitourinary Disorders: No - Psychiatric Hx Substance Use: No <Santos Garrido - Last Filed: 06/02/18 16:34> Family/Social History - Physician Review Nursing Documentation Reviewed: Yes Family/Social History: Unknown Family HX Smoking Status: Light Smoker < 10 Cigarettes Daily Hx Alcohol Use: Yes Hx Substance Use: No <Santos Garrido - Last Filed: 06/02/18 16:34> Allergies/Home Meds <Santos Garrido - Last Filed: 06/02/18 16:34> <Noemy Marquez - Last Filed: 06/02/18 17:41> Allergies/Adverse Reactions: Allergies No Known Allergies Allergy (Verified 06/02/18 10:31) Home Medications: Home Meds Medication Instructions Recorded Confirmed Acetaminophen [Tylenol] 650 mg PO Q4 PRN 10/24/18 10/24/18 RX: Cyanocobalamin [Vitamin B12 1 tab PO DAILY 06/02/18 06/02/18 1000 mcg Tab] RX: LORazepam [Ativan] 2 mg PO Q4 06/02/18 06/02/18 Review of Systems - Physician Review All systems were reviewed & negative as marked: Yes - Review of Systems Constitutional: Normal Eyes: Normal ENT: Normal Respiratory: Normal Cardiovascular: Normal Gastrointestinal: Normal Genitourinary Male: Normal Musculoskeletal: Normal Skin: Normal Neurological: Normal Endocrine: Normal Hemo/Lymphatic: Normal Psychiatric: Other (Psychiatiric evaluation) <Diru,Happiness A - Last Filed: 06/02/18 16:34> Physical Exam Vital Signs Reviewed: Yes Temperature: Afebrile Blood Pressure: Normal Pulse: Regular Respiratory Rate: Normal Appearance: Positive for: Well-Appearing, Non-Toxic, Comfortable Pain Distress: None Mental Status: Positive for: Alert and Oriented X 3 - Systems Exam Head: Present: Atraumatic, Normocephalic Pupils: Present: PERRL Extroacular Muscles: Present: EOMI Conjunctiva: Present: Normal Mouth: Present: Moist Mucous Membranes Neck: Present: Normal Range of Motion Respiratory/Chest: Present: Clear to Auscultation, Good Air Exchange. No: Respiratory Distress, Accessory Muscle Use Cardiovascular: Present: Regular Rate and Rhythm, Normal S1, S2. No: Murmurs Abdomen: No: Tenderness, Distention, Peritoneal Signs Back: Present: Normal Inspection Upper Extremity: Present: Normal Inspection. No: Cyanosis, Edema Lower Extremity: Present: Normal Inspection. No: Edema Neurological: Present: GCS=15, CN II-XII Intact, Speech Normal Skin: Present: Warm, Dry, Normal Color. No: Rashes Psychiatric: Present: Alert, Oriented x 3, Normal Insight, Normal Concentration <Diru,Happiness A - Last Filed: 06/02/18 16:34> Vital Signs Temp Pulse Resp BP Pulse Ox 06/02/18 15:41 71 18 128/78 98 06/02/18 14:00 68 18 131/85 98 06/02/18 12:00 65 18 135/94 H 98 06/02/18 10:36 98.0 F 87 16 132/84 100 06/02/18 10:32 97.9 F 68 17 141/101 H 98 <Noemy Marquez A - Last Filed: 06/02/18 17:41> Medical Decision Making ED Course and Treatment: 06/02/18 16:35 43yo male bib EMS for agitation and combativeness while in [facility]. In ED he was not answering questions correctly, appeared confused and delirious. Labs EKG CXR Head CT Labs was reviewed and was wnl Patient was seen in ED by LEXUS Victor, who DC with Dr. Rice. Dr. Rice called and recommended medical admission. States she saw patient while he was admitted a month ago for alcoholic seizure and was delirious and hallucinating at that time. States that pt have no psych history and she doesn't think that his symptoms are psych related. Head CT was added IMPRESSION: No intracranial hemorrhage. No evidence of acute infarct. Mild atrophy slightly greater than expected for patient age. Mild chronic white matter ischemic change. CXR IMPRESSION: No active disease. EKG NSR @ 85bpm case was DW Dr. Salcido who is covering Dr. Schaeffer and pt was admitted <Santos Garrido A - Last Filed: 06/02/18 16:34> - Lab Interpretations Lab Results: 06/02/18 11:00 06/02/18 11:00 Lab Results 06/02/18 11:00: Alcohol, Quantitative < 10 06/02/18 11:00: Salicylates < 1 L, Acetaminophen < 10.0 L 06/02/18 11:00: Sodium 139, Potassium 4.5, Chloride 104, Carbon Dioxide 28, Anion Gap 10, BUN 8, Creatinine 0.8, Est GFR ( Amer) > 60, Est GFR (Non- Af Amer) > 60, Random Glucose 77, Calcium 9.7, Magnesium 2.1, Total Bilirubin 0.4, AST 28, ALT 28, Alkaline Phosphatase 108, Total Protein 6.6, Albumin 3.4, Globulin 3.2, Albumin/Globulin Ratio 1.1 06/02/18 11:00: WBC 7.3 D, RBC 3.60, Hgb 11.7 L, Hct 37.3 L, MCV 103.6, MCH 32.5, MCHC 31.4, RDW 14.3, Plt Count 303, MPV 9.3, Gran % 67.2, Lymph % (Auto) 20.9 L, [place] % (Auto) 9.2 H, Eos % (Auto) 2.2, Baso % (Auto) 0.5, Gran # 4.89, Lymph # (Auto) 1.5, [place] # (Auto) 0.7 H, Eos # (Auto) 0.2, Baso # (Auto) 0.04 06/02/18 10:20: Urine Opiates Screen Negative, Urine Methadone Screen Negative, Ur Barbiturates Screen Negative, Ur Phencyclidine Scrn Negative, Ur Amphetamines Screen Negative, U Benzodiazepines Scrn Positive H, U Oth Cocaine Metabols Negative, U Cannabinoids Screen Negative 06/02/18 10:20: Urine Color Yellow, Urine Appearance Clear, Urine pH 6.5, Ur Specific [place] 1.015, Urine Protein Negative, Urine Glucose (UA) Negative, Urine Ketones Negative, Urine Blood Negative, Urine Nitrate Negative, Urine Bilirubin Negative, Urine Urobilinogen 0.2, Ur Leukocyte Esterase Negative - RAD Interpretation Radiology Orders: 06/02/18 13:34 HEAD W/O CONTRAST [CT] Stat <Noemy Marquez A - Last Filed: 06/02/18 17:41> - PA / [employer] / Resident Statement MD/DO has reviewed & agrees with the documentation as recorded. <Noemy Marquez - Last Filed: 06/02/18 17:41> Disposition/Present on Arrival - Present on Arrival Any Indicators Present on Arrival: No History of DVT/PE: No History of Uncontrolled Diabetes: No Urinary Catheter: No History Surgical Site Infection Following: None - Disposition Disposition Time: 14:10 Patient Plan: Admission <Santos Garrido A - Last Filed: 06/02/18 16:34> - Disposition Have Diagnosis and Disposition been Completed?: Yes <Noemy Marquez - Last Filed: 06/02/18 17:41> - Disposition Diagnosis: Altered mental state Disposition: HOSPITALIZED Patient Problems: Current Active Problems Problem Status Onset Altered mental state Acute Condition: STABLE
[2018-06-02 11:28] LABS: ACETAMINOPHEN < 10.0 ug/ml (10.0-20.0); SALICYLATE < 1 mg/dL (2.0-20.0)
[2018-06-02 11:32] LABS: PH,URINE 6.5 (4.7-8.0); URINE BILIRUBIN NEGATIVE (NEGATIVE); URINE BLOOD NEGATIVE (NEGATIVE); URINE GLUCOSE (UA) NEGATIVE (NEGATIVE); URINE LEUKOCYTE ESTERASE NEGATIVE Leu/uL (NEGATIVE); URINE PROTEIN NEGATIVE mg/dL (<30 mg/dL); URINE UROBILINOGEN 0.2 E.U./dL (<1 E.U./dL)
[2018-06-02 11:32] LABS: ALB/GLOB RATIO 1.1 (1.1-1.8); ALBUMIN 3.4 g/dL (3.0-4.8); ALT/SGPT 28 U/L (7-56); AST/SGOT 28 U/L (17-59); BLOOD UREA NITROGEN 8 mg/dL (7-21); CALCIUM 9.7 mg/dL (8.4-10.5); GFR NON-AFRICAN AMERICAN > 60
[2018-06-02 11:33] LABS: BASO # 0.04 K/mm3 (0.0-2.0); BASO % 0.5 % (0.0-3.0); EOS # 0.2 (0.0-0.7); EOS % 2.2 % (1.5-5.0); GRAN # 4.89 (1.4-6.5); GRAN % 67.2 % (50.0-68.0); HEMOGLOBIN 11.7 g/dL (14.0-18.0); LYMPH # 1.5 (1.2-3.4); LYMPH % 20.9 % (22.0-35.0); MEAN CELL VOLUME 103.6 fl (80.0-105.0); MEAN CORPUSCULAR HEMOGLOBIN 32.5 pg (25.0-35.0); MEAN CORPUSCULAR HGB CONC 31.4 g/dl (31.0-37.0); MEAN PLATELET VOLUME 9.3 fl (7.0-11.0); MONO # 0.7 (0.1-0.6); MONO % 9.2 % (1.0-6.0); RBC 3.6 10^6/uL (3.5-6.1); RED CELL DISTRIBUTION WIDTH 14.3 % (11.5-14.5); WHITE BLOOD COUNT 7.3 10^3/ul (4.5-11.0)
[2018-06-02 11:33] LABS: URINE APPEARANCE CLEAR (CLEAR); URINE COLOR YELLOW (YELLOW)
[2018-06-02 11:42] LABS: BARBITURATES, UR NEGATIVE (NEGATIVE); BENZODIAZEPINES, UR POSITIVE (NEGATIVE); OPIATES, UR NEGATIVE (NEGATIVE); PHENCYCLIDINE, UR NEGATIVE (NEGATIVE)
--- NOTE | 2018-06-02 14:38 | CT ---
Date of service: 06/02/2018 PROCEDURE: CT HEAD WITHOUT CONTRAST. HISTORY: confused COMPARISON: 05/07/2018 TECHNIQUE: Axial computed tomography images were obtained through the head/brain without intravenous contrast. Radiation dose: Total exam DLP = 899.04 mGy-cm. This CT exam was performed using one or more of the following dose reduction techniques: Automated exposure control, adjustment of the mA and/or kV according to patient size, and/or use of iterative reconstruction technique. FINDINGS: HEMORRHAGE: No intracranial hemorrhage. BRAIN: No mass effect or edema. Mild atrophy slightly greater than expected for patient age. Mild chronic periventricular white matter ischemic change. VENTRICLES: Unremarkable. No hydrocephalus. CALVARIUM: Unremarkable. PARANASAL SINUSES: Unremarkable as visualized. No significant inflammatory changes. MASTOID AIR CELLS: Unremarkable as visualized. No inflammatory changes. OTHER FINDINGS: None. IMPRESSION: No intracranial hemorrhage. No evidence of acute infarct. Mild atrophy slightly greater than expected for patient age. Mild chronic white matter ischemic change. Findings in this examination were described by telephone to ILENE Garrido at 2:25 p.m. on 06/02/2018.
--- NOTE | 2018-06-02 14:47 | CARD ---
APPROVED REPORT Date of service: 06/02/2018 EKG Measurement Heart [id number] OR 140P32 [id number] <Conclusion> Normal sinus rhythm PWNL Electrical artifact present.
--- NOTE | 2018-06-02 15:22 | RAD ---
Date of service: 06/02/2018 HISTORY: admission COMPARISON: 05/12/2018 FINDINGS: LUNGS: No active pulmonary disease. PLEURA: No significant pleural effusion identified, no pneumothorax apparent. CARDIOVASCULAR: No aortic atherosclerotic calcification present OSSEOUS STRUCTURES: No significant abnormalities. VISUALIZED UPPER ABDOMEN: Normal. OTHER FINDINGS: None. IMPRESSION: No active disease.
[2018-06-02 18:51] VITALS: BMI 19.2
[2018-06-02] MEDS ORDERED: Pneumococcal 23-Valent Vaccine IM ONE (18:52)
[2018-06-02] MEDS ORDERED: Influenza Vaccine 60 mcg/0.5 mL SYR (4YR UP) IM ONE (18:52)
--- NOTE | 2018-06-03 00:51 | HP ---
HISTORY OF PRESENT ILLNESS: The patient is a 43-year-old male known to me from previous admissions, was transferred from [facility] for altered mental status. He was found to be very agitated in the intermediate and he was also combative. He was evaluated by psychiatrist and was advised to bring him to emergency room for further evaluation. The patient does not give much history. He appears somewhat confused and not giving intelligent answers. PAST MEDICAL HISTORY: Significant for seizure disorder, history of alcohol abuse and having multiple admissions for alcohol intoxication. He also has history of psoriasis. PAST SURGICAL HISTORY: Not significant. ALLERGIES: NOT ALLERGIC TO ANY MEDICATIONS. SOCIAL HISTORY: He is . He has been smoking for the last 25 years. He used to drink on a regular basis, but currently he is in [facility]. MEDICATIONS: In the intermediate, he was on Librium 25 twice a day, thiamine 100 mg daily, Seroquel 12.5 at bedtime, multivitamin, magnesium oxide, lorazepam 2 mg q.4, folic acid 1 mg daily, B12 and acetaminophen. PHYSICAL EXAMINATION: GENERAL: The patient is confused and disoriented, does not want to talk much. VITAL SIGNS: He is afebrile, pulse 86, respiration 18, blood pressure 128/78. LUNGS: Bilateral fair airflow. No rhonchi or crackle. HEART: S1 and S2 audible. ABDOMEN: Soft, nontender. No rebound. No guarding. NEUROLOGIC: The patient is sleepy but arousable. EXTREMITIES: Bilateral legs, no edema. LABORATORY EXAMINATION: WBC 7.3, hemoglobin 11.7, hematocrit 37.3 and platelets 303. Chemistry: Sodium 139, potassium 4.5, chloride 104, CO2 of 28, BUN 8, creatinine 0.8, blood sugar of 77. LFTs are within normal limits. Urinalysis is unremarkable. Blood toxicology report positive for benzodiazepines. ASSESSMENT: 1. Altered mental status. 2. History of seizure disorder. 3. History of alcohol abuse. 4. Active smoker. PLAN: We will start the patient on lorazepam, multivitamin and folic acid. We will give him Seroquel 12.5 at bedtime. Psych evaluation by Dr. Rice will be requested. Dr. Schaeffer will follow up this patient in a.m. Konstantin Salcido MD [facility] # [id number]
[2018-06-03 07:16] LABS: BASO # 0.04 K/mm3 (0.0-2.0); BASO % 0.5 % (0.0-3.0); EOS # 0.2 (0.0-0.7); EOS % 3.1 % (1.5-5.0); GRAN # 4.42 (1.4-6.5); GRAN % 59.2 % (50.0-68.0); MEAN CELL VOLUME 102.6 fl (80.0-105.0); MEAN CORPUSCULAR HEMOGLOBIN 32.4 pg (25.0-35.0); MEAN CORPUSCULAR HGB CONC 31.5 g/dl (31.0-37.0); MEAN PLATELET VOLUME 9.4 fl (7.0-11.0); MONO # 0.8 (0.1-0.6); MONO % 10.2 % (1.0-6.0); RBC 3.4 10^6/uL (3.5-6.1); RED CELL DISTRIBUTION WIDTH 14.4 % (11.5-14.5); WHITE BLOOD COUNT 7.5 10^3/ul (4.5-11.0)
[2018-06-03 07:30] LABS: ALBUMIN 3.2 g/dL (3.0-4.8); ALT/SGPT 26 U/L (7-56); AST/SGOT 41 U/L (17-59); BLOOD UREA NITROGEN 10 mg/dL (7-21); CALCIUM 9.6 mg/dL (8.4-10.5); GFR NON-AFRICAN AMERICAN > 60
--- NOTE | 2018-06-03 09:58 | CP.PCM.PN ---
<Mariia Pearson - Last Filed: 06/03/18 17:08> Subjective - Date & Time of Evaluation Date of Evaluation: 06/03/18 Time of Evaluation: 09:58 - Subjective Subjective: Mariia Pearson DO, PGY-2: Progress Note for Dr. Schaeffer Patient was seen and examined at bedside. Patient is with a one to one. He does not know why he is in the hospital and does not know the month or the year. Night nurse reports patient was initially running in and out of room, looking under the mattress, and exhibiting bizarre behavior such that a one to one was needed. Objective - Vital Signs/Intake and Output Vital Signs (last 24 hours): Temp Pulse Resp BP Pulse Ox 97.8 F 88 20 119/79 100 06/02/18 22:00 06/02/18 22:00 06/02/18 22:00 06/02/18 22:00 06/02/18 22:00 - Medications Medications: Current Medications Acetaminophen (Tylenol 325mg Tab) 650 mg PO Q4 PRN PRN Reason: Fever >100.4 F Cyanocobalamin (Vitamin B12 1000 Mcg Tab) 1,000 mcg PO DAILY [facility] Folic Acid (Folic Acid) 1 mg PO DAILY [facility] Lorazepam (Ativan) 2 mg PO Q4 PRN; Protocol PRN Reason: Agitation Last Admin: 06/02/18 20:19 Dose: 2 mg Multivitamins/Minerals (Therapeutic-M Tab) 1 tab PO DAILY [facility] Quetiapine Fumarate (Seroquel) 12.5 mg PO AMHS SANDEEP; Protocol Thiamine HCl (Vitamin B1 Tab) 100 mg PO DAILY [facility] Ziprasidone (Geodon Inj) 10 mg IM Q12 PRN; Protocol PRN Reason: severe agitaiton/psychosis - Labs Labs: 06/03/18 06:30 06/03/18 06:30 - Constitutional Appears: Unkempt - Head Exam Head Exam: ATRAUMATIC, NORMOCEPHALIC - Eye Exam Eye Exam: EOMI, Normal appearance - ENT Exam ENT Exam: Mucous Membranes Moist - Neck Exam Neck Exam: Normal Inspection - Respiratory Exam Respiratory Exam: Clear to Ausculation Bilateral, NORMAL BREATHING PATTERN. absent: Accessory Muscle Use - Cardiovascular Exam Cardiovascular Exam: RRR, +S1, +S2 - Extremities Exam Additional comments: both legs have linear scratches and abrasions - Neurological Exam Neurological Exam: Awake. absent: Oriented x3 - Psychiatric Exam Additional comments: hypoactive cognitive function and awareness - Skin Skin Exam: Abrasion Assessment and Plan - Assessment and Plan (Free Text) Assessment: 43 year old male with a past medical history notable for possible alcohol encephalopathy, and seizure in the setting of alcohol withdrawal who presented from physical therapy facility for aggressive behavior. Plan: 1) Delirium/bizarre behavior - Differential would include toxic alcoholic encephalopathy;post-ictal behavior could account for his presentation as well; Benzodiazepine withdrawal - Psychaitry consulted - Neurology consulted - Continue with current treatment and rule out underlying infection - TSH, Vitamin B12, folate, methylmalonic acid - urine cultures <Lc Schaeffer - Last Filed: 06/03/18 18:43> Objective - Vital Signs/Intake and Output Vital Signs (last 24 hours): Temp Pulse Resp BP Pulse Ox 97.8 F 65 18 115/77 97 06/03/18 14:00 06/03/18 14:00 06/03/18 14:00 06/03/18 14:00 06/03/18 14:00 Intake and Output: 06/03/18 06/03/18 06:59 18:59 Intake Total 300 Output Total 600 Balance -300 - Medications Medications: Current Medications Acetaminophen (Tylenol 325mg Tab) 650 mg PO Q4 PRN PRN Reason: Fever >100.4 F Cyanocobalamin (Vitamin B12 1000 Mcg Tab) 1,000 mcg PO DAILY [facility] Last Admin: 06/03/18 10:44 Dose: 1,000 mcg Folic Acid (Folic Acid) 1 mg PO DAILY [facility] Last Admin: 06/03/18 10:45 Dose: 1 mg Lorazepam (Ativan) 2 mg PO Q4 PRN; Protocol PRN Reason: Agitation Last Admin: 06/02/18 20:19 Dose: 2 mg Multivitamins/Minerals (Therapeutic-M Tab) 1 tab PO DAILY [facility] Last Admin: 06/03/18 10:44 Dose: 1 tab Quetiapine Fumarate (Seroquel) 12.5 mg PO AMHS SANDEEP; Protocol Last Admin: 06/03/18 10:45 Dose: 12.5 mg Thiamine HCl (Vitamin B1 Tab) 100 mg PO DAILY [facility] Last Admin: 06/03/18 10:45 Dose: 100 mg Ziprasidone (Geodon Inj) 10 mg IM Q12 PRN; Protocol PRN Reason: severe agitaiton/psychosis - Labs Labs: 06/03/18 06:30 06/03/18 06:30 Assessment and Plan - Assessment and Plan (Free Text) Assessment: Pt seen and examined. I have reviewed the note of the medical billing associate and agree with it. I have discussed the assessment and plan with the resident. I have reviewed the patient's labs and medications. Pt with agitation and was sent to [facility] for ER for evaluation. He has hx of ETOH with changes seen on CT that are chronic. He may have dementia due to his hx of ETOH. He is going to be seen by psych. He will get PT for his gait dysfunction. He has a 1:1 sitter. He has Delerium that seems to have improved.
[2018-06-03] MEDS: Multivitamin With Minerals Tab PO SCH (10:44)
--- NOTE | 2018-06-03 21:20 | CON ---
DATE: 06/03/2018 HISTORY OF PRESENT ILLNESS: The patient is a 43-year-old male with history of alcohol use disorder, history of seizures. This communications writer is very familiar with this patient from the previous admission to the medical site and consultation services which took place here in [place] on 05/05/2018. Back then, the patient presented to be confused, had alcohol withdrawal delirium with hallucinations and confusions. At this time, the patient was sent from subacute rehab for evaluation of aggressive behavior, confusion, and change in mental status. The patient was admitted on the medical site. Psych consult was called for evaluation of bizarre and disorganized behavior. The patient was seen and examined today. The patient presented to be alert, confabulates. The patient does not remember this communications writer, but he said that her face looks familiar. The patient knows that he is in [facility]. The patient knows what is the date, but was not sure of what month, but was aware of the year. The patient reported that he feels fine. The patient denied hearing voices, denied seeing things. The patient had difficulties to find the right words and presented to be mildly confused. As per collateral information from the nursing staff overnight, the patient was not following direction, needed to have constant observation, and the patient is currently on one-to-one. As per one-to-one, the patient appears to be confused, has episodes of trying to climb off the bed and throwing the water towards the staff, but the patient does not have any recollection of that events. This communications writer would like to emphasize the fact that the patient does not have history of mental illness; and he was drinking and hiding that fact from his family before. PHYSICAL EXAMINATION: VITAL SIGNS: Stable. Temperature 97.8, pulse of 88, blood pressure 119/79, respirations 20, oxygen saturation is 100. MEDICATIONS: Reviewed. Tylenol, vitamin B12, folic acid, Ativan, multivitamins, Seroquel will be increased to 12.5 mg twice a day, thiamine 100 mg daily, Geodon 10 mg IM every 12 hours as needed. LABORATORY DATA: Reviewed. Chemistry reviewed. Urinalysis reviewed. Toxicology reviewed. Benzodiazepines were positive. Microbiology reviewed. Blood work reviewed. Head CT scan was done yesterday. No intracranial hemorrhages. No evidence of acute infarct, mild atrophy slightly greater than expected for the patient's age, mild chronic white matter ischemic changes. MENTAL STATUS EXAMINATION: The patient presented to be alert. The patient knows that he is in the hospital, but was not aware of the month. The patient thinks that right now it is July, aware of the date, the year. Mood described as okay. Affect was at times inappropriate. The patient is smiling inappropriately but not aggressive or agitated, but mostly confused. Thought process disorganized. Thought content, the patient denied hearing voices, denied seeing things. The patient has episodes of confusion and agitation and thought process seems to be disorganized. Insight and judgment seems to be very limited. Impulses are unpredictable. IMPRESSION: Most likely, the patient is in delirium stage, combination of factors, alcohol consumption, and this communications writer cannot exclude alcohol-related dementia, but at present moment, the patient presented to be in delirium stage and medical team needs to find out what cause all of these delirium. PLAN: This communications writer would suggest neurology consultation, suggest physical therapy. Also this communications writer started Seroquel 12.5 mg twice a day at the morning time and at the nighttime, agree with Ativan. The patient is on one-to-one. Continue current management. We will follow up and advised accordingly. Thank you very much for letting me participate in the care of your patient. Krsytal Del Castillo MD [facility]
[2018-06-03 23:02] VITALS: RESP 20
[2018-06-04 08:56] LABS: PH,URINE 5.5 (4.7-8.0); URINE BILIRUBIN NEGATIVE (NEGATIVE); URINE BLOOD NEGATIVE (NEGATIVE); URINE GLUCOSE (UA) NEGATIVE (NEGATIVE); URINE LEUKOCYTE ESTERASE NEGATIVE Leu/uL (NEGATIVE); URINE PROTEIN NEGATIVE mg/dL (<30 mg/dL); URINE UROBILINOGEN 0.2 E.U./dL (<1 E.U./dL)
[2018-06-04 08:59] LABS: URINE APPEARANCE CLEAR (CLEAR); URINE COLOR YELLOW (YELLOW)
[2018-06-04] MEDS: Multivitamin With Minerals Tab PO SCH (09:05)
--- NOTE | 2018-06-04 11:00 | CP.PCM.PN ---
<Mariia Pearson - Last Filed: 06/04/18 11:06> Subjective - Date & Time of Evaluation Date of Evaluation: 06/04/18 Time of Evaluation: 10:54 - Subjective Subjective: Mariia Pearson DO, PGY-2: Progress Note for Dr. Schaeffer Patient was seen and examined at bedside. We have discontinued the 1:1. We will observe the patient. He will invariably exhibit bizarre behavior. The patient is confabulating. Nurse reports he was making odd gestures with plastic knife. We will follow up labs that were ordered. Otherwise, no adverse events noted overnight. Objective - Vital Signs/Intake and Output Vital Signs (last 24 hours): Temp Pulse Resp BP Pulse Ox 97.6 F 96 H 20 106/72 97 06/04/18 06:00 06/04/18 06:00 06/04/18 06:00 06/04/18 06:00 06/04/18 06:00 Intake and Output: 06/04/18 06/04/18 06:59 18:59 Intake Total 500 Balance 500 - Medications Medications: Current Medications Acetaminophen (Tylenol 325mg Tab) 650 mg PO Q4 PRN PRN Reason: Fever >100.4 F Cyanocobalamin (Vitamin B12 1000 Mcg Tab) 1,000 mcg PO DAILY [facility] Last Admin: 06/04/18 09:05 Dose: 1,000 mcg Folic Acid (Folic Acid) 1 mg PO DAILY [facility] Last Admin: 06/04/18 09:05 Dose: 1 mg Lorazepam (Ativan) 2 mg PO Q4 PRN; Protocol PRN Reason: Agitation Last Admin: 06/03/18 21:07 Dose: 2 mg Multivitamins/Minerals (Therapeutic-M Tab) 1 tab PO DAILY [facility] Last Admin: 06/04/18 09:05 Dose: 1 tab Quetiapine Fumarate (Seroquel) 12.5 mg PO AMHS [facility]; Protocol Last Admin: 06/04/18 09:05 Dose: 12.5 mg Thiamine HCl (Vitamin B1 Tab) 100 mg PO DAILY [facility] Last Admin: 06/04/18 09:05 Dose: 100 mg Ziprasidone (Geodon Inj) 10 mg IM Q12 PRN; Protocol PRN Reason: severe agitaiton/psychosis - Labs Labs: 06/03/18 06:30 06/03/18 06:30 - Constitutional Appears: Well, Non-toxic - Head Exam Head Exam: ATRAUMATIC, NORMOCEPHALIC - Eye Exam Eye Exam: EOMI, Normal appearance - ENT Exam ENT Exam: Mucous Membranes Moist - Neck Exam Neck Exam: Normal Inspection - Respiratory Exam Respiratory Exam: Clear to Ausculation Bilateral, NORMAL BREATHING PATTERN. a bsent: Accessory Muscle Use - Cardiovascular Exam Cardiovascular Exam: RRR, +S1, +S2 - GI/Abdominal Exam GI & Abdominal Exam: Soft, Normal Bowel Sounds - Extremities Exam Extremities Exam: Normal Inspection. absent: Calf Tenderness - Neurological Exam Neurological Exam: Alert, Awake, Normal Gait. 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 Currently, the working diagnosis is wernicke's encephalopathy. Plan: 1) Delirium resolved - Etiology is likely Wernicke's encephalopathy - Continue with MV/Thiamine/ Folic Acid - Will follow up labs that are ordered. 2) Disposition - 1:1 discontinued - Patient can be discharged back to rehabilitation facility tomorrow at 11:15 AM Case reviewed and discussed with attending physician, Dr. Schaeffer <Lc Schaeffer S - Last Filed: 06/05/18 12:07> Objective - Vital Signs/Intake and Output Vital Signs (last 24 hours): Temp Pulse Resp BP Pulse Ox 98.2 F 95 H 20 122/82 100 06/05/18 06:00 06/05/18 06:00 06/05/18 06:00 06/05/18 06:00 06/05/18 06:00 Intake and Output: 06/05/18 06/05/18 06:59 18:59 Intake Total 300 Balance 300 - Medications Medications: Current Medications Acetaminophen (Tylenol 325mg Tab) 650 mg PO Q4 PRN PRN Reason: Fever >100.4 F Cyanocobalamin (Vitamin B12 1000 Mcg Tab) 1,000 mcg PO DAILY [facility] Last Admin: 06/05/18 11:11 Dose: 1,000 mcg Folic Acid (Folic Acid) 1 mg PO DAILY [facility] Last Admin: 06/05/18 11:12 Dose: 1 mg Lorazepam (Ativan) 2 mg PO Q4 PRN; Protocol PRN Reason: Agitation Last Admin: 06/05/18 11:11 Dose: 2 mg Multivitamins/Minerals (Therapeutic-M Tab) 1 tab PO DAILY [facility] Last Admin: 06/05/18 11:12 Dose: 1 tab Quetiapine Fumarate (Seroquel) 12.5 mg PO AMHS [facility]; Protocol Last Admin: 06/05/18 11:12 Dose: 12.5 mg Thiamine HCl (Vitamin B1 Tab) 500 mg PO DAILY [facility] Last Admin: 06/04/18 17:51 Dose: 500 mg Ziprasidone (Geodon Inj) 10 mg IM Q12 PRN; Protocol PRN Reason: severe agitaiton/psychosis - Labs Labs: 06/03/18 06:30 06/03/18 06:30 Assessment and Plan - Assessment and Plan (Free Text) Assessment: Pt seen and examined. I have reviewed the note of the medical lab tech instructor and agree with it. I have discussed the assessment and plan with the resident. I have reviewed the patient's labs and medications. Pt with Dementia- ETOH as the cause. Spoke to to update her. He is on 1:1. He is waiting to go to [facility]. His condition may not improve. Delirium is improved.
--- NOTE | 2018-06-04 12:16 | PN ---
DATE: 06/04/2018 FOLLOWUP NOTE SUBJECTIVE: The patient was followed up today. No much improvement with the patient's presentation. The patient still appears to be very confused. Medical team working diagnosis is Wernicke encephalopathy, agree with that. The patient presented to be confused. The patient does not know what is the date today. The patient said 28th or 29th. When asked what is the month, the patient repeats 28th or 29th. What year, the patient also repeats 28th or 29th. No meaningful conversation possible at this point. Vital signs are stable. Temperature 97.6, pulse is 96, blood pressure 106/72, respirations 20, oxygen saturation is 97. Medications reviewed. The patient is on Tylenol, vitamin B12, folic acid, Ativan as needed, multivitamins, Seroquel 12.5 mg at the morning time and at the nighttime, thiamine 100 mg daily as well as Geodon 10 mg IM every 12 hours as needed. Labs reviewed. Chemistry reviewed. Toxicology reviewed. MENTAL STATUS EXAMINATION: As this consumer loan underwriter described above, no meaningful conversation possible. The patient is confabulating, repeating 28th or 29th. The patient is staring at this consumer loan underwriter. Random answering for the questions. Insight and judgment seems to be impaired as of now. Impulses are better controlled, but still unpredictable. IMPRESSION: Delirium, possible alcohol-related dementia. Medical team working diagnosis is Wernicke encephalopathy, it is a chance. PLAN: The patient is on multivitamins, thiamine and folic acid. The patient is on Ativan. The patient is on Seroquel. One-to-one should be discontinued at least for trial for the daytime. If the patient exhibits bizarre or inappropriate behavior, the patient should be continued on one-to-one. Meanwhile, continue current management. Continue current presentation. Should you have any questions, give me a call back. Discussed with attending, Dr. Schaeffer today. We will follow up on this patient every other day. Thank you very much for letting me participate in the care of your patient. Should you have any questions, give me a call back. Krystal Del Castillo MD [facility] # [id number]
[2018-06-04 12:59] LABS: FOLATE 10.6 ng/mL
[2018-06-05 07:58] VITALS: TEMP 98.2; O2SAT 100
--- NOTE | 2018-06-05 08:21 | PN ---
DATE: 06/05/2018 SUBJECTIVE: The patient has no complaints of any chest pain. No shortness of breath. No headaches. PHYSICAL EXAMINATION: VITAL SIGNS: Temperature is 98.1, pulse of 91, blood pressure is 110/64, respirations 20, O2 saturation 98%. GENERAL: The patient is lying in bed, flat, comfortable. HEENT: No oral lesion. Anicteric sclerae. Moist mucosa. NECK: No JVD, adenopathy, or thyromegaly. CARDIOVASCULAR: S1 and S2, regular. No murmurs, rubs, or gallops. LUNGS: Clear to auscultation bilaterally. No wheeze, rales, or rhonchi. ABDOMEN: Bowel sounds are positive, soft, nontender and nondistended. EXTREMITIES: No cyanosis, clubbing or edema. ASSESSMENT: 1. 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 2. Delirium, improved. PLAN: The patient has a history of alcoholism, suspected prolonged history. He has abnormal CT. Given his age, I did speak to Dr. Rice yesterday. We believe that the patient has dementia from underlying alcoholism. He has not improved since the last admission to the hospital. I suspect that this may be permanent, but some more time with physical therapy may be of benefit. I also concerned that he may need nursing home placement. I have been working with social service worker. The patient is going to get evaluation by Neurology as well. I will continue the patient on Seroquel. He is on multivitamins. He is going to continue on thiamine. He is on a one-to-one sitter. He garcia shad a regular diet that he is tolerating. Lc Schaeffer MD
[2018-06-05] MEDS: Multivitamin With Minerals Tab PO SCH (11:12)
[2018-06-05 14:42] VITALS: BP 125/86; PULSE 109
--- NOTE | 2018-06-07 08:24 | CON ---
DATE: 06/02/2018 CHIEF COMPLAINT: Evaluate for Wernicke's encephalopathy. HISTORY OF PRESENT ILLNESS: This is a 43-year-old male with past medical history notable of alcoholic encephalopathy, history of seizure disorder in the past from alcohol withdrawal, history of chronic ETOH abuse, who presented to the hospital from [facility] for aggressive behavior and combative. He is very tangential in speech and thoughts. He is wandering around pacing. He is alert, oriented to person, but not place, month or year. Recall at 5 minutes is 0/3. His mini mental status examination is 10/30 indicating severe cognitive impairment, likely from alcohol induced dementia. His CAT scan showed generalized atrophy worse for age, but no acute intracranial abnormalities. He is on multivitamins, thiamine and folate. He should be on thiamine a minimum of 300 mg a day and could even make it 500 if needed. He is on Seroquel for agitation. Case discussed with on the phone and recommended outpatient cognitive exercises. His labs are stable. PAST MEDICAL HISTORY: As above. FAMILY HISTORY: Noncontributory. SOCIAL HISTORY: Severe alcohol abuse. No illicit drug use or smoking. ALLERGIES: NO KNOWN DRUG ALLERGIES. MEDICATIONS: Reviewed by nursing conciliation sheet. REVIEW OF SYSTEMS: A 14-point review of system reviewed negative except as per HPI. PHYSICAL EXAMINATION: GENERAL: The patient is sitting up in bed, in no acute distress. VITAL SIGNS: Temperature 97.8, pulse rate of 88, blood pressure 104/66, respirations 20, oxygen saturation 99% on room air. HEENT: Atraumatic, normocephalic. PERRLA. Extraocular muscles intact. NECK: Supple. No JVD. No adenopathy noted. LUNGS: Clear to auscultation. No adventitious sounds. HEART: S1 and S2, normal rate and rhythm. No murmur, rubs or gallops. ABDOMEN: Soft, nontender, and nondistended. Bowel sounds present. EXTREMITIES: No clubbing. No cyanosis. Peripheral pulses are 2+ felt bilaterally. NEUROLOGIC: The patient is alert and oriented to person, but not month or year. Recall at 5 minutes 0/3. thought process, mini mental status examination shows 10/30. Judgement is not intact. Poor thought process as well as slow thought process. Tangential speech. Cranial nerves II through XII intact. Motor: Moves all extremities equally. No pronator drift seen. Sensory: Light touch, pinprick, proprioception slight decreased up to the calves. Decreased vibration of the toes. DTRs are 2+ throughout. Romberg is negative and gait slightly wide base, otherwise normal. LABORATORY DATA: Today's TSH is 2.37 and B12 is 386. IMPRESSION: Abnormal behavior, is likely secondary to alcohol dementia superimposed on possible Wernicke's encephalopathy. PLAN: At this time I recommend, 1. Minimum of thiamine of 300 mg p.o. daily and could consider up to 500 p.o. daily. 2. Cognitive exercises as an outpatient. 3. Multivitamins and B complex and vitamins daily and frequent orientation throughout the day. Continue with Seroquel 25 mg p.o. at bedtime for agitation, combative behavior and continue with current present medical management. Case discussed with on the cell phone. Thank you for this consult. Ash Navarrete MD
[2018-06-08 11:23] LABS: METHYLMALONIC ACID,SERUM 222 nmol/L (87-318)
== END 2018-06-05 22:05 ==
LOC: ED 10:09 → ERH 14:17 → 5RNO 16:57
PROVIDERS: ADMIT Internal Medicine Nephrology; ATTEND Internal Medicine Nephrology
DX: E51.2 Wernicke's encephalopathy (principal); F10.27 Alcohol dependence with alcohol-induced persisting dementia; F10.231 Alcohol dependence with withdrawal delirium; G40.909 Epilepsy, unspecified, not intractable, without status epilepticus; F17.200 Nicotine dependence, unspecified, uncomplicated; Y90.0 Blood alcohol level of less than 20 mg/100 ml
CPT/HCPCS: 36415; 70450; 71045; 80053; 80320; 80324; 80329; 80345; 80346; 80349; 80353; 80358; 80361; 81003; 82607; 82746; 83735; 83921; 83992; 84425; 84443; 85025; 86592; 87086; 87181; 90791; 93005; 97116; 97162; 99285; G0378; G8978; G8979

== ENCOUNTER 2018-06-08 21:06 | Emergency (ER) | payer OTHER ==
[2018-06-08 21:23] VITALS: TEMP 98.6; BMI 20.9
--- NOTE | 2018-06-08 21:44 | ED PDOC ---
Arrival/HPI - General Chief Complaint: Psychiatric Evaluation Time Seen by Provider: 06/08/18 21:24 Historian: Patient, Custodial EM Caveat: Acuity of Condition - History of Present Illness Narrative History of Present Illness (Text): 06/08/18 21:44 43 year old male, whose past medical history includes alcohol encephalopathy, seizure disorder, alcohol abuse, and psoriasis, presents to the emergency department by EMS from [facility] for evaluation following aggressive behaviors and combative behavior at staff. As per note, patient hit his head on the frame of an elevator, but did not lose consciousness. Patient at the present time questioned, but appears confused and somewhat delusional with tangential speech and thoughts. Patient with possible confabulation. He appears oriented to person, but not place or year. Patient noted with recent admission to hospital approximately a week prior with similar presentation. Patient admitted and evaluated with Psych and Neuro at that time with recommendations and patient was transferred back to [facility]. Patient currently without any somatic complaints. HPI and ROS limited due to patient's current mental state. PMD: Dr. Alvarenga Context: Home (half-way) Past Medical History - Provider Review Nursing Documentation Reviewed: Yes - Infectious Disease Hx of Infectious Diseases: None - Cardiac Hx Cardiac Disorders: No - Pulmonary Hx Respiratory Disorders: Yes Hx Pneumonia: Yes (legonnaires about 9 yrs ago) - Neurological Hx Neurological Disorder: Yes Hx Dizziness: Yes Hx Seizures: Yes Other/Comment: 05/05/18 heard him scream and found him with eyes rolled back foaming at the mouth pt does not remember passing out, arms locked at chest unresponsive for a few minutes, ems came pt confused, had 1 episode of diarrhea, pt had stopped drinking unaware that this could happen, went [place] [facility] [place] [facility] [place], his electrolytes had been abnormal also - HEENT Hx HEENT Disorder: No - Renal Hx Renal Disorder: No - Endocrine/Metabolic Hx Endocrine Disorders: No - Hematological/Oncological Hx Blood Disorders: Yes Other/Comment: hypokalemia, hypomagnesia - Integumentary Hx Dermatological Disorder: Yes Hx Psoriasis: Yes Other/Comment: red raised rash both hand, pt stated "I have psoriasis", multiple red scabs to ble, dry skin to feet - Musculoskeletal/Rheumatological Hx Falls: Yes (past) - Gastrointestinal Hx Gastrointestinal Disorders: Yes - Genitourinary/Gynecological Hx Genitourinary Disorders: No - Psychiatric Hx Psychophysiologic Disorder: No Hx Substance Use: No Other/Comment: pt drank beer daily quit drinking on his own prior to last admission for seizure-like activity 05/05/18 - Surgical History Hx Amputation: No Hx Appendectomy: No Hx Cardiac Catheterization: No Hx Cholecystectomy: No Hx Coronary Stent: No Hx Gastric Bypass Surgery: No Family/Social History - Physician Review Nursing Documentation Reviewed: Yes Family/Social History: No Known Family HX Smoking Status: Heavy Smoker > 10 Cigarettes Daily Hx Alcohol Use: Yes (daily beer quit drinking about 1 month) Hx Substance Use: No Allergies/Home Meds Allergies/Adverse Reactions: Allergies No Known Allergies Allergy (Verified 06/02/18 10:31) Home Medications: Home Meds Medication Instructions Recorded Confirmed Acetaminophen [Tylenol] 650 mg PO Q4 PRN 06/02/18 06/09/18 RX: Cyanocobalamin [Vitamin B12 1 tab PO DAILY 06/02/18 06/09/18 1000 mcg Tab] RX: LORazepam [Ativan] 2 mg PO Q4 06/02/18 06/09/18 Magnesium Hydroxide [Milk Of 400 mg PO DAILY PRN 06/09/18 06/09/18 Magnesia] QUEtiapine [SEROquel] 50 mg PO HS 06/09/18 06/09/18 RX: Bacitracin Ointment 30 gm TOP DAILY 06/09/18 06/09/18 [Bacitracin] Temazepam [Restoril] 30 mg PO DAILY 06/09/18 06/09/18 Review of Systems - Physician Review All systems were reviewed & negative as marked: Yes - Review of Systems Systems not reviewed;Unavailable: Acuity of Condition Physical Exam Vital Signs Reviewed: Yes Vital Signs Temp Pulse Resp BP Pulse Ox 06/08/18 21:15 98.6 F 72 16 128/84 99 Temperature: Afebrile Blood Pressure: Normal Pulse: Regular Respiratory Rate: Normal Appearance: Positive for: Well-Appearing, Non-Toxic, Comfortable Pain Distress: None Mental Status: Positive for: other (Alert and Oriented x1 (preson)) - Systems Exam Head: Present: Atraumatic, Normocephalic Pupils: Present: PERRL Extroacular Muscles: Present: EOMI Conjunctiva: Present: Normal Ears: Present: Normal Mouth: Present: Moist Mucous Membranes Pharnyx: Present: Normal Neck: Present: Normal Range of Motion Respiratory/Chest: Present: Clear to Auscultation, Good Air Exchange. No: Respiratory Distress, Accessory Muscle Use Cardiovascular: Present: Regular Rate and Rhythm, Normal S1, S2. No: Murmurs Abdomen: No: Tenderness, Distention, Peritoneal Signs Back: Present: Normal Inspection Upper Extremity: Present: Normal Inspection, Normal ROM. No: Cyanosis, Edema Lower Extremity: Present: Normal Inspection, Normal ROM. No: Edema Neurological: Present: GCS=15, CN II-XII Intact Skin: Present: Warm, Dry, Normal Color. No: Rashes Psychiatric: Present: Alert (and oriented x 1 (person)) Medical Decision Making ED Course and Treatment: 06/08/18 21:44 Impression: 43 year old presents for evaluation following aggressive and combative behavior at [facility] and evaluation s/p hit head on from of an elevator. Plan: -- CT head w/o contrast -- EKG -- labs -- Chest X-ray -- Reassess and disposition Prior Visits: Notes and results from previous visits were reviewed. Progress Notes: 06/08/18 22:01 EKG shows NSR at 93 BPM with no acute changes. Interpreted by me. 06/08/18 23:44 CXR Impression: As read by me, no acute process. EXAM: CT Head without Intravenous Contrast. Electronically signed on Jun 09, 2018 12:36:40 AM EDT by: Kiko Serrato M.D. IMPRESSION: Old fracture involving right orbital floor. No acute pathology. 06/09/18 03:39 Patient medically cleared. Patient seen and evaluated by PES keely Buenrostro who discussed case with Dr. Del Castillo who reports patient does not meet criteria for psych admission. She states patient symptoms are chronic. Case discussed with PMD Dr. Cartagena who also agrees with the plan to discharge patient back to [facility]. - Lab Interpretations I have reviewed the lab results: Yes - RAD Interpretation Radiology Orders: 06/08/18 21:36 HEAD W/O CONTRAST [CT] Stat 06/08/18 21:37 CHEST PORTABLE [RAD] Stat - EKG Interpretation Interpreted by ED Physician: Yes Type: 12 lead EKG - Scribe Statement The provider has reviewed the documentation as recorded by the Amadou Morejon Provider Scribe Attestation: All medical record entries made by the Scribe were at my direction and personally dictated by me. I have reviewed the chart and agree that the record accurately reflects my personal performance of the history, physical exam, medical decision making, and the department course for this patient. I have also personally directed, reviewed, and agree with the discharge instructions and disposition. Disposition/Present on Arrival - Present on Arrival Any Indicators Present on Arrival: No History of DVT/PE: No History of Uncontrolled Diabetes: No Urinary Catheter: No History of Decub. Ulcer: No History Surgical Site Infection Following: None - Disposition Have Diagnosis and Disposition been Completed?: Yes Diagnosis: Alcoholic encephalopathy Disposition: Trans to Other Acute Care Hosp Disposition Time: 03:34 Patient Plan: Discharge Condition: GOOD Additional Instructions: Follow up with the PMD this week Forms: [email or web address] (Swedish)
[2018-06-08 22:30] LABS: HEMOGLOBIN 11.5 g/dL (14.0-18.0); MEAN CORPUSCULAR HGB CONC 32.4 g/dl (31.0-37.0); MEAN PLATELET VOLUME 9.3 fl (7.0-11.0); RBC 3.48 10^6/uL (3.5-6.1); RED CELL DISTRIBUTION WIDTH 13.9 % (11.5-14.5); WHITE BLOOD COUNT 8.4 10^3/uL (4.5-11.0)
[2018-06-08 22:58] LABS: ALBUMIN 3.5 g/dL (3.0-4.8); BLOOD UREA NITROGEN 8 mg/dL (7-21); CALCIUM 9.5 mg/dL (8.4-10.5); GFR NON-AFRICAN AMERICAN > 60
[2018-06-08 22:59] LABS: ALB/GLOB RATIO 1.2 (1.1-1.8); ALT/SGPT 30 U/L (7-56); AST/SGOT 30 U/L (17-59)
[2018-06-09 00:59] LABS: BARBITURATES, UR NEGATIVE (NEGATIVE); BENZODIAZEPINES, UR POSITIVE (NEGATIVE); OPIATES, UR NEGATIVE (NEGATIVE); PHENCYCLIDINE, UR NEGATIVE (NEGATIVE)
[2018-06-09 04:06] VITALS: BP 116/80; PULSE 80; RESP 19; O2SAT 99
--- NOTE | 2018-06-09 09:21 | CT ---
Date of service: 06/08/2018 PROCEDURE: CT HEAD WITHOUT CONTRAST. HISTORY: injury COMPARISON: 06/02/2018 TECHNIQUE: Axial computed tomography images were obtained through the head/brain without intravenous contrast. Radiation dose: Total exam DLP = 936.72 mGy-cm. This CT exam was performed using one or more of the following dose reduction techniques: Automated exposure control, adjustment of the mA and/or kV according to patient size, and/or use of iterative reconstruction technique. FINDINGS: HEMORRHAGE: No intracranial hemorrhage. BRAIN: No mass effect or edema. Mild to moderate atrophy. VENTRICLES: Unremarkable. No hydrocephalus. CALVARIUM: Unremarkable. There is an old fracture of the right orbital floor PARANASAL SINUSES: Unremarkable as visualized. No significant inflammatory changes. MASTOID AIR CELLS: Unremarkable as visualized. No inflammatory changes. OTHER FINDINGS: The report concurs with the preliminary [facility] report IMPRESSION: No acute intracranial findings
--- NOTE | 2018-06-09 12:01 | CARD ---
APPROVED REPORT Date of service: 06/08/2018 EKG Measurement Heart [id number] <Conclusion> Normal sinus rhythm Normal Electrocardiogram
--- NOTE | 2018-06-09 12:43 | RAD ---
Date of service: 06/08/2018 HISTORY: medical clearance COMPARISON: 06/02/2018 FINDINGS: LUNGS: No active pulmonary disease. PLEURA: No significant pleural effusion identified, no pneumothorax apparent. CARDIOVASCULAR: No aortic atherosclerotic calcification present. Normal cardiac size. No pulmonary vascular congestion. OSSEOUS STRUCTURES: No significant abnormalities. VISUALIZED UPPER ABDOMEN: Normal. OTHER FINDINGS: None. IMPRESSION: No active disease.
== END 2018-06-09 04:05 | disposition short-term general hospital (02) ==
LOC: ED 21:06
DX: G31.2 Degeneration of nervous system due to alcohol (principal)

== ENCOUNTER 2018-11-28 16:15 | Observation (INO) | payer OTHER ==
[2018-11-28 16:15] VITALS: BMI 20.9
[2018-11-28] MEDS ORDERED: Multivitamin (MVI) 10 ML, Thiamine 100 MG, Folic Acid 1 MG in Sodium Chloride 0.9% 1,00... IV ONE ×2 (16:56→20:39)
[2018-11-28 17:43] LABS: BASO # 0.07 K/mm3 (0.0-2.0); BASO % 0.7 % (0.0-3.0); EOS % 0.1 % (1.5-5.0); HEMOGLOBIN 14.5 g/dL (14.0-18.0); LYMPH # 1.1 (1.2-3.4); LYMPH % 10.3 % (22.0-35.0); MEAN CELL VOLUME 97.1 fl (80.0-105.0); MEAN CORPUSCULAR HEMOGLOBIN 32.9 pg (25.0-35.0); MEAN CORPUSCULAR HGB CONC 33.9 g/dl (31.0-37.0); MEAN PLATELET VOLUME 10.3 fl (7.0-11.0); MONO # 0.9 (0.1-0.6); MONO % 8.5 % (1.0-6.0); RBC 4.41 10^6/uL (3.5-6.1); RED CELL DISTRIBUTION WIDTH 15.8 % (11.5-14.5); WHITE BLOOD COUNT 10.7 10^3/uL (4.5-11.0)
--- NOTE | 2018-11-28 17:52 | ED PDOC ---
Arrival/HPI - General Chief Complaint: Seizure Time Seen by Provider: 11/28/18 16:37 - History of Present Illness Narrative History of Present Illness (Text): 11/28/18 17:37 Patient is a 43 year old male with past medical history of seizures presenting to ED s/p seizure at home. As per who was witness, patient was sitting at dinner table when he shouted and then lost consciousness, falling off the chair with shaking and eyes dilated. Currently patient denies any symptomatic complaints. Patient was hospitalized for seizures in April 2018 and neurology workup at that time concluded patient's seizures were alcohol induced. Patient states he has been noncompliant and has been continuously drinking one to two glasses of wine everyday. Denies recent illnesses or sick contacts. Denies changes in vision or hearing or sensation. Denies fevers, chills, nausea, vomiting, chest pain, shortness of breath, abdominal pain, diarrhea, dysuria. Time/Duration: Prior to Arrival Symptom Onset: Sudden Symptom Course: Resolved Activities at Onset: Eating Past Medical History - Provider Review Nursing Documentation Reviewed: Yes - Infectious Disease Hx of Infectious Diseases: None - Cardiac Hx Cardiac Disorders: No - Pulmonary Hx Respiratory Disorders: Yes Hx Pneumonia: Yes (legonnaires about 9 yrs ago) - Neurological Hx Neurological Disorder: Yes Hx Dizziness: Yes Hx Seizures: Yes Other/Comment: 05/05/18 heard him scream and found him with eyes rolled back foaming at the mouth pt does not remember passing out, arms locked at chest unresponsive for a few minutes, ems came pt confused, had 1 episode of diarrhea, pt had stopped drinking unaware that this could happen, went to [facility] [place] [facility], his electrolytes had been abnormal also - HEENT Hx HEENT Disorder: No - Renal Hx Renal Disorder: No - Endocrine/Metabolic Hx Endocrine Disorders: No - Hematological/Oncological Hx Blood Disorders: Yes Other/Comment: hypokalemia, hypomagnesia - Integumentary Hx Dermatological Disorder: Yes Hx Psoriasis: Yes Other/Comment: red raised rash both hand, pt stated "I have psoriasis", multiple red scabs to ble, dry skin to feet - Musculoskeletal/Rheumatological Hx Falls: Yes (past) - Gastrointestinal Hx Gastrointestinal Disorders: Yes - Genitourinary/Gynecological Hx Genitourinary Disorders: No - Psychiatric Hx Psychophysiologic Disorder: No Hx Substance Use: No Other/Comment: pt drank beer daily quit drinking on his own prior to last admission for seizure-like activity 05/05/18 - Surgical History Hx Amputation: No Hx Appendectomy: No Hx Cardiac Catheterization: No Hx Cholecystectomy: No Hx Coronary Stent: No Hx Gastric Bypass Surgery: No Family/Social History - Physician Review Nursing Documentation Reviewed: Yes Family/Social History: No Known Family HX Smoking Status: Heavy Smoker > 10 Cigarettes Daily Hx Alcohol Use: Yes (daily beer) Frequency of alcohol use: Daily Hx Substance Use: No Allergies/Home Meds Allergies/Adverse Reactions: Allergies No Known Allergies Allergy (Verified 06/02/18 10:31) Home Medications: Home Meds Medication Instructions Recorded Confirmed Acetaminophen [Tylenol] 650 mg PO Q4 PRN 06/02/18 06/09/18 Cyanocobalamin [Vitamin B12 1000 1 tab PO DAILY 06/02/18 06/09/18 mcg Tab] LORazepam [Ativan] 2 mg PO Q4 06/02/18 06/09/18 Bacitracin Ointment [Bacitracin] 30 gm TOP DAILY 06/09/18 06/09/18 Magnesium Hydroxide [Milk Of 400 mg PO DAILY PRN 06/09/18 06/09/18 Magnesia] QUEtiapine [SEROquel] 50 mg PO HS 06/09/18 06/09/18 Temazepam [Restoril] 30 mg PO DAILY 06/09/18 06/09/18 Review of Systems - Physician Review All systems were reviewed & negative as marked: Yes - Review of Systems Constitutional: Normal Respiratory: Normal Cardiovascular: Normal Gastrointestinal: Normal Genitourinary Male: Normal Physical Exam Vital Signs Reviewed: Yes Vital Signs Temp Pulse Resp BP Pulse Ox 11/28/18 16:22 98 F 108 H 20 147/90 95 Temperature: Afebrile Blood Pressure: Normal Pulse: Tachycardic Respiratory Rate: Normal Appearance: Positive for: Well-Appearing, Non-Toxic Pain Distress: None Mental Status: Positive for: Alert and Oriented X 3 - Systems Exam Head: Present: Atraumatic, Normocephalic Pupils: Present: PERRL Extroacular Muscles: Present: EOMI Conjunctiva: Present: Normal Mouth: Present: Moist Mucous Membranes Respiratory/Chest: Present: Clear to Auscultation, Good Air Exchange. No: Respiratory Distress, Accessory Muscle Use, Wheezes Cardiovascular: Present: Regular Rate and Rhythm, Normal S1, S2 Abdomen: Present: Normal Bowel Sounds. No: Tenderness, Distention Lower Extremity: Present: Normal Inspection. No: Edema Neurological: Present: GCS=15, CN II-XII Intact, Speech Normal, Normal Sensory Function Skin: Present: Warm, Dry, Normal Color, Abrasion (on left ring finger ) Psychiatric: Present: Alert, Oriented x 3 Medical Decision Making ED Course and Treatment: 11/28/18 17:59 Impression: 43 year old male with seizure Plan: - CBC, CMP, Mg - EKG - CT head - alcohol level - CK - UDS - CXR - Reassess and disposition Prior Visits: Notes and results from previous visits were reviewed. Progress Notes: 11/28/18 18:00 Labs and imaging reviewed. Discussed case with Dr. Paulino who accepts patient for admission. Patient hemodynamically stable and is in agreement with plan of management. - Lab Interpretations I have reviewed the lab results: Yes - RAD Interpretation Radiology Orders: 11/28/18 16:55 CHEST PORTABLE [RAD] Stat 11/28/18 16:56 HEAD W/O CONTRAST [CT] Stat - EKG Interpretation Interpreted by ED Physician: Yes Type: 12 lead EKG - Medication Orders Current Medication Orders: Multivitamins/Vitamin C 10 ml/Thiamine HCl 100 mg/ Folic Acid 1 mg/ Sodium Chloride 1,011.2 mls @ 150 mls/hr IV .[id number] ONE Stop: 11/28/18 23:40 Disposition/Present on Arrival - Present on Arrival Any Indicators Present on Arrival: No History of DVT/PE: No History of Uncontrolled Diabetes: No Urinary Catheter: No History of Decub. Ulcer: No History Surgical Site Infection Following: None - Disposition Have Diagnosis and Disposition been Completed?: Yes Diagnosis: Seizure Disposition: HOSPITALIZED Disposition Time: 18:22 Patient Problems: Current Active Problems Problem Status Onset Seizure Acute Condition: STABLE
[2018-11-28 17:53] LABS: ALB/GLOB RATIO 1.7 (1.1-1.8); ALBUMIN 5.1 g/dL (3.0-4.8); ALT/SGPT 148 U/L (7-56); AST/SGOT 186 U/L (17-59); BLOOD UREA NITROGEN 10 mg/dL (7-21); CALCIUM 10.1 mg/dL (8.4-10.5); GFR NON-AFRICAN AMERICAN > 60
[2018-11-28] MEDS ORDERED: Magnesium Hydroxide Susp 30 ml UD PO PRN (20:40)
--- NOTE | 2018-11-29 00:02 | CT ---
Date of service: 11/28/2018 PROCEDURE: CT HEAD WITHOUT CONTRAST. HISTORY: seizure, trauma COMPARISON: Comparison is made with 06/08/2018 TECHNIQUE: Axial computed tomography images were obtained through the head/brain without intravenous contrast. Radiation dose: Total exam DLP = 1043.25 mGy-cm. This CT exam was performed using one or more of the following dose reduction techniques: Automated exposure control, adjustment of the mA and/or kV according to patient size, and/or use of iterative reconstruction technique. FINDINGS: HEMORRHAGE: No intracranial hemorrhage. BRAIN: No mass effect or edema. No atrophy or chronic microvascular ischemic changes. VENTRICLES: Unremarkable. No hydrocephalus. CALVARIUM: Unremarkable. PARANASAL SINUSES: Unremarkable as visualized. No significant inflammatory changes. MASTOID AIR CELLS: Unremarkable as visualized. No inflammatory changes. OTHER FINDINGS: None. IMPRESSION: No evidence of acute intracranial hemorrhage mass effect or midline shift. Preliminary report was submitted by [facility] Radiology contains concordant findings.
[2018-11-29 00:25] VITALS: O2SAT 97
--- NOTE | 2018-11-29 04:23 | HP ---
DATE OF EXAM: 11/28/2018 HISTORY OF PRESENT ILLNESS: He is a 43-year-old white male who I know very well from the Psychiatric unit from my office. He has been drinking alcohol and had seizures in the past I believe that happened again, he is back drinking again. He is a 43-year-old man who has shaking at the dinner table, he shouted and then lost consciousness, falling off the chair, shaking, and eyes dilated. No symptomatic complaints right now in the emergency room. PAST MEDICAL HISTORY: Seizures with alcohol, he is an alcoholic. He has been very much mentally confused at one time with delirium and completely confused and it took him six weeks off alcohol to come back to a normal mentation, now he is back to drinking again unfortunately. He has a history of Legionnaires disease pneumonia nine years ago. He has had hypokalemia before, hypomagnesemia. He has red rashes on both hands from psoriasis. He had falls in the past. He is a daily drinker. He has quit before, but he is back on it. He has had drinking seizures in the past. FAMILY HISTORY: Unknown. SOCIAL HISTORY: He still smokes cigarettes. Still drinks daily. No substance abuse. ALLERGIES: NO KNOWN DRUG ALLERGIES. MEDICATIONS: He is on Tylenol, vitamin B12, Ativan, bacitracin, milk of magnesia, Seroquel, and Vistaril. REVIEW OF SYSTEMS: He is presently in bed with no acute vision or hearing changes. He is comfortable. He is calm. No sore throat. No chest pain or palpitations. No shortness of breath or cough. No abdominal pain, nausea, vomiting, constipation, or diarrhea. No extremity weakness. He is a little bit weak and overwhelmed with the situation. He is sort of mentally intact. PHYSICAL EXAMINATION VITAL SIGNS: Temperature of 98, 108 pulse, 20 respiratory rate, 147/90 blood pressure, and 95% O2 sat. GENERAL: He is well appearing, nontoxic at this time, a witnessed seizure at home, alert and oriented x3, not postictal at all. HEENT: Head is atraumatic and normocephalic. Extraocular muscles are intact. Pupils equally reactive to light. Throat is moist. NECK: Supple. No JVD. Thyroid midline. No palpable lymphadenopathy. HEART: Regular rate. Normal S1 and S2. LUNGS: Decreased breath sounds bilaterally but no wheezes, no rhonchi, no rales. ABDOMEN: Soft, nontender. Positive bowel sounds. No guarding. No rebound. No CVA tenderness. EXTREMITIES: No edema. He can move all four extremities well. NEUROLOGIC: GCS is 15. Cranial nerves II through XII grossly intact. Speech is normal at this time. Alert and oriented x3 at this time. Not tremulous at all at this time either. SKIN: Warm and dry. He has got an abrasion on his left ring finger. LABORATORY DATA: He had multiple tests done. He has a 10.7 white count, 14.5 hemoglobin, 42.8 hematocrit, and 195 platelets. A 137 sodium, potassium 4.2, BUN is 10, creatinine 1, GFR is greater than 60, sugar is 131, calcium is 10.1, magnesium 2.4, total bili is 0.7, AST is 186, ALT is 148, alk phos is 99. Total creatine kinase is 192. Total protein is 8.2. Toxicology; his alcohol level less than 10. ASSESSMENT AND PLAN: Head CT and chest x-ray are pending. He is going to consult with Neurology and Psychiatry. He knows Dr. Rice. I will put him back on his medications. He will be on CIWA protocol, Ativan, folic acid, Librium. He might need an MRI. He is on CIWA protocol and we watch him. He is in the hospital for the possibility of a post alcoholic seizure. Isaías Paulino DO
--- NOTE | 2018-11-29 05:26 | RAD ---
Date of service: 11/28/2018 HISTORY: aspiration COMPARISON: Comparison is made with 06/08/2018 TECHNIQUE: 1 view obtained. FINDINGS: LUNGS: No evidence of new infiltrate or consolidation in the lungs. PLEURA: No significant pleural effusion identified, no pneumothorax apparent. CARDIOVASCULAR: No aortic atherosclerotic calcification present. Normal cardiac size. No pulmonary vascular congestion. OSSEOUS STRUCTURES: No significant abnormalities. VISUALIZED UPPER ABDOMEN: Normal. OTHER FINDINGS: None. IMPRESSION: No active disease.
[2018-11-29 06:51] VITALS: BP 112/74; RESP 18; TEMP 98.3
[2018-11-29 07:01] LABS: HEMOGLOBIN 13.6 g/dL (14.0-18.0); MEAN CELL VOLUME 97.2 fl (80.0-105.0); MEAN CORPUSCULAR HEMOGLOBIN 32.2 pg (25.0-35.0); MEAN CORPUSCULAR HGB CONC 33.2 g/dl (31.0-37.0); MEAN PLATELET VOLUME 10.2 fl (7.0-11.0); RBC 4.22 10^6/uL (3.5-6.1); RED CELL DISTRIBUTION WIDTH 15.8 % (11.5-14.5); WHITE BLOOD COUNT 7.4 10^3/uL (4.5-11.0)
[2018-11-29 07:39] LABS: ALB/GLOB RATIO 1.5 (1.1-1.8); ALBUMIN 4.3 g/dL (3.0-4.8); ALT/SGPT 118 U/L (7-56); AST/SGOT 125 U/L (17-59); BLOOD UREA NITROGEN 10 mg/dL (7-21); CALCIUM 9.6 mg/dL (8.4-10.5); GFR NON-AFRICAN AMERICAN > 60
[2018-11-29 10:47] VITALS: PULSE 71
--- NOTE | 2018-11-29 13:34 | CP.PCM.PCO ---
Physician Communication Note - Physician Communication Note Physician Communication Note: Assessment/Plan - Assessment and Plan (Free Text) Assessment: IMPRESSION: 1.SEIZURE?/SYNCOPAL CONVUSLION WITH ETOH USE. 2. ETOH INDUCED COGNITIVE IMPAIRMENT. CT HEAD SHOWED NO ACUTE ABNORMALITIES. MRI BRAIN IN THE PAST JUST SHOWED SEVERE GENERALIZED ATROPY. NEUEO EXAM: PT IS ALERT TO PERSON, PLACE NOT TIME. RECALL AFTER 5 MINUTES IS 0/3, POOR ATTENTION SPAN, SLOW THOUGHT PROCESS. CN 2-12 INTACT MOTOR--- MOVES ALL EXTREMITIES EQUALLY, NO PRONATOR DRIFT APPRECIATED. SENSORY-- DECREASED LT UP TO CALVES BILATERALLY, WITHDRAWS A LOCALIZES TO PAINFUL STIMULI. DTR 2+ THROUGHOUT AND 1 AT BOTH ANKLES, TOES DOWN GOING BILATERALLY. COORDINATION: NO DYSMETRIA. GAIT DEFERRED FOR NOW. PLAN: [facility] PROTOCOL AVOID HYPOGLYCEMIC EVENT SINCE HIS BLOOD SUGAR TODAY WAS 60. SEROQUEL 50 MG PO QHS FOR AGITATION. THAIMINE 300MG PO DAILY PSYCH EVAL FOR ETOH COUNSELLING. THANKS. MARIKA
--- NOTE | 2018-11-29 15:29 | CON ---
DATE: 11/29/2018 HISTORY OF PRESENT ILLNESS: A 43-year-old male with past medical history of seizure witnessed by the at bedside. No tongue bite. No urinary incontinence. He has only a witnessed seizure noticed. The patient does not remember passing out, eyes were rolled back and was unresponsive for few minutes. PAST MEDICAL HISTORY: As above. SOCIAL HISTORY: Smokes and drinks. ALLERGY: NO KNOWN DRUG ALLERGIES. HOME MEDICATIONS: Seroquel, Restoril and Tylenol. PHYSICAL EXAMINATION: VITAL SIGNS: Blood pressure 147/90. HEENT: Normocephalic and atraumatic. NECK: Supple. NEURO: Alert, awake and oriented x3. No aphasia. Cranial nerve II through XII were tested. Pupil reactive. EOM intact. Visual field full. No facial asymmetry. Tongue midline. Motor examination, moves all the extremities equally. Tone normal. Deep tendon reflexes 1+. Both plantars are downgoing. Sensory appears intact. Cerebellar gait normal. IMPRESSION AND PLAN : He has an alcohol withdrawal seizure possibly and CAT scan of the head was negative. Continue present management. We will followup. Garrett Navarrete MD
--- NOTE | 2018-11-29 19:11 | CARD ---
APPROVED REPORT Date of service: 11/28/2018 EKG Measurement Heart [id number] <Conclusion> Normal sinus rhythm Normal ECG
--- NOTE | 2018-11-29 19:52 | CON ---
DATE: 11/29/2018 HISTORY OF PRESENT ILLNESS: The patient is a 43-year-old domiciled male, who was admitted on the medical side status post seizure. The patient has a history of severe alcohol use disorder, as well as depression, but no psychiatric hospitalizations or suicide attempts. His only psychiatric histories appear to be consultations with Dr. Del Castillo on 06/03/2018, 06/04/2018 and 05/06/2018 and 05/07/2018 for alcohol withdrawal related symptoms. Dr. Del Castillo at that time was seeing the patient for acute hallucinations and DTs, as well as depression and agitation and Seroquel was started to help with these symptoms and the patient was detoxed off of alcohol. During his 04/2018 admission, the patient had to come clean to his about his drinking, as he actually had been a secret drinker prior to that. At this time, I met with the patient at bedside and he seemed to be calmer and much more coherent than his prior two admissions for alcohol related symptoms. There have been no agitated episodes and he is alert and oriented to current month, year, location, and circumstances. He is aware that he had a seizure. He believes it was because he was vomiting earlier in the day causing electrolyte imbalance in addition to his alcohol use caused the seizure. The patient denies having any major concerns. He admits that he has issues with drinking. He drinks about 2 or 3 glasses of wine daily. He denies any drug use. His last seizure before this one was in 04/2018. He denies any major anxiety. He reports he is sleeping well and he appears unmotivated and unwilling for psychiatric intervention at this time even though this provider explained possible interventions including medication for possible depression, anxiety, alcohol urges and referrals for outpatient or inpatient treatment. His insight and judgment are considered fair none the less, he is coherent. He is not hallucinating. His responses are relevant and consistent and delusions were not elicited. At this time, this provide will respect patient's wishes and defer to the recommendations of his medical team. SOCIAL HISTORY: The patient was born and raised in [place]. since 2007. He has no children. 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 He drinks about 2 or 3 glasses of wine. He reports that he has had trouble with alcohol since he was 21 and has experienced DTs and alcohol withdrawal seizures in the past and the patient denies any drug use. PAST PSYCHIATRIC HISTORY: The patient denies any inpatient psychiatric admissions. Denies any suicide attempts. Denies any current psychiatric outpatient treatment. Previously treated with Seroquel while he was in DTs, this was effective. IMPRESSION: Severe alcohol use disorder, alcohol withdrawals, history of delirium tremens, mood disorder and anxiety disorder by history, which apparently the patient reports is noncontributory at this time. RECOMMENDATIONS: I have made recommendations for the patient regarding the dangerousness of his continued alcohol use, long-term repercussions, different interventions to help him abstain from alcohol, and he does not appear to be extremely motivated to follow up on these interventions. Nonetheless, this provider recommends that he be given a referral to [facility] for possible psychiatric medication management if he could change his mind. Regardless, he should get a referral, as well as referrals for dual treatment programs. Medical team should continue to detox the patient off the alcohol and continue chasing benzodiazepines for this purpose as his vitals tolerate. I agree with implementation of Seroquel 50 mg at bedtime. This might be the reason why he has not become extremely agitated or disoriented as of now. We will continue with this medication. Otherwise, Psychiatry will sign off. Please re-consult p.[email or web address]. Jossie Kitchen MD
--- NOTE | 2018-11-30 08:12 | PN ---
HOSPITAL COURSE: I saw him in his bed this morning. He had no tremors. He had no withdrawal. He is an alcoholic. He did come here with altered mental status, but then no alcohol in his blood at the time. He is very calm. No issues at this time. I am thinking about discharging him. He was getting folic acid, Librium, magnesium, Seroquel, vitamin B1, and vitamin B12. He is comfortable. He wants to go home. PHYSICAL EXAMINATION: VITAL SIGNS: He has a 98.3 temperature, 83 pulse, 112/74 blood pressure, 18 respiratory rate, and 97% O2 saturation on room air. HEENT: His head is atraumatic and normocephalic. HEART: Regular rate. LUNGS: Clear to auscultation. ABDOMEN: Soft. EXTREMITIES: No edema and no tremors. LABORATORY DATA: He has a 7.4 white count, 13.6 hemoglobin, 41 hematocrit with a 164 platelets. A 137 sodium, potassium 3.9, BUN is 10, creatinine 0.8, GFR is greater than 60, sugar is 60, calcium 9.6, total bili is 0.8, AST is 125, ALT is 118, and alk phos 75. Liver enzymes are coming down. Total protein 7.2. ASSESSMENT AND PLAN: There were orders for a Neurology and Psychiatry evaluation. If they are okay, I will discharge him today. He knows not to drink any alcohol anymore. I discussed that with him. He tells me he will try. I do not think he is going to try. I think he is an alcoholic and that is where he is at. I think his is also an enabler and anyway hoping he stays sober and healthy, but he should be able to go home from the hospital at this time. He does not wish to go to any kind of rehab. Await Neurology and Psychiatry evaluation. Isaías Paulino DO
== END 2018-11-29 14:16 | disposition home or self-care (01) ==
LOC: ED 16:15 → INTOOBSV 18:24 → ERH 18:24 → 2RNO 21:12
PROVIDERS: ADMIT Family Medicine; ATTEND Family Medicine
DX: F10.239 Alcohol dependence with withdrawal, unspecified (principal); R56.9 Unspecified convulsions; F17.210 Nicotine dependence, cigarettes, uncomplicated; Z91.19 Patient's noncompliance with other medical treatment and regimen
CPT/HCPCS: 36415; 70450; 71045; 80053; 80320; 82550; 82948; 83735; 85025; 85027; 93005; 99285; G0378; J3411; J7030